=== PATIENT | female | born 1980 | race American Indian/Alaskan Native ===

== ENCOUNTER 2017-01-27 19:33 | Emergency (ER) | payer SELFPAY ==
[2017-01-27 20:45] VITALS: BP 143/89
--- NOTE | 2017-01-27 22:04 | Emergency Department Report ---
HPI - General Chief Complaint: Dental/Oral Time Seen by Provider: 01/27/17 22:04 - HPI HPI: Patient here reports that she has left upper gum pain and redness test radiating in her left ear times one month. She says she hadn't gone to the dentist for years because she cannot afford it. She says she took ibuprofen which did not help. Denies any fever or chills. Denies any sore throat, difficulty breathing or shortness of breath. Denies any drooling. She said the pain is not intermittent. ED Past Medical Hx - Past Medical History Previous Medical History?: Yes Hx Hypertension: No Hx Heart Attack/AMI: No Hx Congestive Heart Failure: No Hx Diabetes: No Hx Deep Vein Thrombosis: No Hx Pulmonary Embolism: No Hx GERD: Yes Hx Liver Disease: No Hx Renal Disease: No Hx Sickle Cell Disease: No Hx Arthritis: No Hx Headaches / Migraines: No Hx Seizures: No Hx Kidney Stones: No Hx Asthma: No Hx COPD: No Hx Tuberculosis: No Hx Dementia: No Hx HIV: No Additional medical history: anemia, herpes - Surgical History Past Surgical History?: Yes Hx Coronary Stent: No Hx Pacemaker: No Hx Internal Defibrillator: No Additional Surgical History: x 4. Hysterectomy 03/06/15 - Family History Family history: hypertension - Social History Smoking Status: Never Smoker Substance Use Type: None - Medications Home Medications: Home Medications Medication Instructions Recorded Confirmed Last Taken Type Ibuprofen [Motrin 800 MG tab] 800 mg PO Q8H PRN 03/01/15 03/01/15 Unknown History Multivitamin/Iron/Folic Acid 1 each PO DAILY #30 tablet 03/03/15 Unknown Rx [Multi-Day Plus Iron Tablet] medroxyPROGESTERone ACETATE 10 mg PO QDAY #7 tablet 03/03/15 Unknown Rx [Provera] Ferrous Sulfate [Feosol 325 MG tab] 325 mg PO BID #60 tablet 03/09/15 Unknown Rx Ibuprofen [Motrin] 800 mg PO Q8H PRN #30 tablet 03/09/15 Unknown Rx oxyCODONE /ACETAMINOPHEN [Percocet 2 tab PO Q4H PRN #30 tablet 03/09/15 Unknown Rx 5/325 mg] Ibuprofen [Motrin] 600 mg PO Q8H PRN #90 tablet 04/12/15 Unknown Rx Amoxicillin/K Clav Tab [Augmentin 1 tab PO BID #20 tablet 03/13/16 Unknown Rx 875MG TAB] HYDROcodone/APAP 5-325 [[place] 1 each PO Q6HR PRN #14 tablet 03/13/16 Unknown Rx 5-325 mg TAB] Acyclovir [Acyclovir Ointment] 1 applicatio TP 5XD PRN #1 tube 06/07/16 Unknown Rx Valacyclovir HCl [Valtrex] 1,000 mg PO BID #20 tab 06/07/16 Unknown Rx metroNIDAZOLE [Flagyl] 500 mg PO Q12HR #14 tab 06/07/16 Unknown Rx Acetaminophen/Codeine [Tylenol #3] 1 tab PO Q6H PRN #16 tab 01/27/17 Unknown Rx Amoxicillin [Amoxicillin TAB] 875 mg PO BID #20 tablet 01/27/17 Unknown Rx ED Review of Systems ROS: Stated complaint: ABSCESS/EAR ACHE/HEADACHE Other details as noted in HPI Comment: All other systems reviewed and negative Constitutional: denies: chills, fever Eyes: denies: eye discharge ENT: ear pain, dental pain. denies: throat pain, congestion Respiratory: no symptoms reported. denies: cough, orthopnea, shortness of breath, SOB with exertion, SOB at rest, stridor, wheezing Cardiovascular: denies: chest pain, palpitations, edema, syncope Gastrointestinal: denies: nausea, vomiting Musculoskeletal: denies: back pain, arthralgia Skin: denies: rash Neurological: denies: headache Physical Exam - Physical Exam Vital Signs: Vital Signs 01/27/17 20:15 Temperature 98.3 F Pulse Rate 86 Respiratory 16 Rate Blood Pressure 143/89 [Right] O2 Sat by Pulse 99 Oximetry General: This is a 36-year-old female well-nourished well-developed in no acute distress. Physical Exam: Head: Normocephalic atraumatic Mouth: Moist, no pharyngeal exudate or erythema. Uvula is midline and oral airway is patent. Positive gingival enlargement with erythema. Multiple dental caries. No facial swelling. No peritonsillar abscesses. Nose: Normal mucosa. Maxillary and frontal sinuses nontender to palpate Neck: Supple, no C-spine tenderness, no tracheal deviation. Nontender to palpate. no adenopathyBilateral otitis nontender to palpate Abdomen: Soft, nontender to palpate in all quadrants, normal bowel sounds in all quadrant and negative CVA tenderness bilaterally. Eyes: Bilateral pupils equal and reactive to light, bilateral EOM intact. Bilateral sclera and conjunctiva without injection. Normal accommodation. No Lungs: Clear to auscultate bilaterally no rhonchi wheezes or rales. Normal work of breathing extremity; No CCE. +2 pulses. No neurovascular compromise Cardiovascular: S1-S2, regular rate rhythm. No murmurs. Skin: clean Dry and intact no rash no lesions Psych: Normal mood and behavior ED Course Vital Signs 01/27/17 20:15 Temperature 98.3 F Pulse Rate 86 Respiratory 16 Rate Blood Pressure 143/89 [Right] O2 Sat by Pulse 99 Oximetry - Reevaluation(s) Reevaluation #1: 01/27/17 22:14 Patient given Rocephin 1 g IM and emergency room along with Motrin 800 mg by mouth. ED Medical Decision Making - Medical Decision Making ED course: She given Motrin 800 mg by mouth along with Rocephin 1 g IM emperic Treatment for gingivitis and poor oral care. Discussed with patient that she will need to follow-up with a dentist for deep seen in the deep cleaning of gums and managing multiple cavities. Discussed with her that if she does not follow up this could be due to more widespread infection in her mouth and in her neck. Discussed with her that her gum care is living to heart disease. I discussed with patient that she needs to at least twice a day after eating. Patient was understanding of discharge instruction discharged home with prescription for amoxicillin and Tylenol No. 3 Critical care attestation.: If time is entered above; I have spent that time in minutes in the direct care of this critically ill patient, excluding procedure time. ED Disposition Clinical Impression: Gingivitis, Pain in gums, Dental cavities Disposition: DISCHARGED TO HOME OR SELFCARE Is pt being admited?: No Does the pt Need Aspirin: No Condition: Stable Instructions: Gingivitis (ED), Dental Caries (ED) Additional Instructions: Please refer to dentist that you were referred to in Discharge instruction paperwork and call tomorrow to schedule please Floss in the morning and at bedtime Tylenol 3 can cause drowsiness. so please do not drive or operate heavy machinery while taking this medication Prescriptions: Acetaminophen/Codeine [Tylenol #3] 1 tab PO Q6H PRN #16 tab PRN Reason: Dental pain Amoxicillin [Amoxicillin TAB] 875 mg PO BID #20 tablet Referrals: [facility] [Outside] - 2-3 Days [facility] [Outside] - 2-3 Days Forms: Work/School Release Form(ED)
[2017-01-27] MEDS ORDERED: XYLOCAINE 1% MPF 5 mL INFILTRATI ONE (22:05)
[2017-01-27] MEDS ORDERED: ROCEPHIN IM STA (22:05)
[2017-01-27] MEDS ORDERED: MOTRIN PO ONE (22:06)
== END 2017-01-27 22:55 | disposition home or self-care (01) ==
LOC: ED 19:33
DX: K05.10 Chronic gingivitis, plaque induced (principal); K02.9 Dental caries, unspecified; K21.9 Gastro-esophageal reflux disease without esophagitis; Z90.710 Acquired absence of both cervix and uterus
CPT/HCPCS: 96372; 99282; J0696

== ENCOUNTER 2017-01-29 10:25 | Emergency (ER) | payer SELFPAY ==
[2017-01-29 10:33] VITALS: BP 134/91
--- NOTE | 2017-01-29 11:13 | Emergency Department Report ---
ED Headache HPI - General Chief Complaint: Headache Stated Complaint: HEADACHE Time Seen by Provider: 01/29/17 10:57 - History of Present Illness Allergies/Adverse Reactions: Allergies No Known Allergies Allergy (Verified 03/01/15 13:36) Home Medications: Ambulatory Orders Ibuprofen [Motrin 800 MG tab] 800 mg PO Q8H PRN 03/01/15 Multivitamin/Iron/Folic Acid [Multi-Day Plus Iron Tablet] 1 each PO DAILY #30 tablet 03/03/15 medroxyPROGESTERone ACETATE [Provera] 10 mg PO QDAY #7 tablet 03/03/15 Ferrous Sulfate [Feosol 325 MG tab] 325 mg PO BID #60 tablet 03/09/15 Ibuprofen [Motrin] 800 mg PO Q8H PRN #30 tablet 03/09/15 oxyCODONE /ACETAMINOPHEN [Percocet 5/325 mg] 2 tab PO Q4H PRN #30 tablet Ibuprofen [Motrin] 600 mg PO Q8H PRN #90 tablet 04/12/15 Amoxicillin/K Clav Tab [Augmentin 875MG TAB] 1 tab PO BID #20 tablet 03/13/16 HYDROcodone/APAP 5-325 [[place] 5-325 mg TAB] 1 each PO Q6HR PRN #14 tablet Acyclovir [Acyclovir Ointment] 1 applicatio TP 5XD PRN #1 tube 06/07/16 Valacyclovir HCl [Valtrex] 1,000 mg PO BID #20 tab 06/07/16 metroNIDAZOLE [Flagyl] 500 mg PO Q12HR #14 tab 06/07/16 Acetaminophen/Codeine [Tylenol #3] 1 tab PO Q6H PRN #16 tab 01/27/17 Amoxicillin [Amoxicillin TAB] 875 mg PO BID #20 tablet 01/27/17 ED Review of Systems ROS: Stated complaint: HEADACHE Other details as noted in HPI ED Past Medical Hx - Past Medical History Previous Medical History?: Yes Hx Hypertension: No Hx Heart Attack/AMI: No Hx Congestive Heart Failure: No Hx Diabetes: No Hx Deep Vein Thrombosis: No Hx Pulmonary Embolism: No Hx GERD: Yes Hx Liver Disease: No Hx Renal Disease: No Hx Sickle Cell Disease: No Hx Arthritis: No Hx Headaches / Migraines: No Hx Seizures: No Hx Kidney Stones: No Hx Asthma: No Hx COPD: No Hx Tuberculosis: No Hx Dementia: No Hx HIV: No Additional medical history: anemia, herpes - Surgical History Past Surgical History?: Yes Hx Coronary Stent: No Hx Pacemaker: No Hx Internal Defibrillator: No Additional Surgical History: x 4. Hysterectomy 03/06/15 - Social History Smoking Status: Never Smoker Substance Use Type: None - Medications Home Medications: Home Medications Medication Instructions Recorded Confirmed Last Taken Type Ibuprofen [Motrin 800 MG tab] 800 mg PO Q8H PRN 03/01/15 03/01/15 Unknown History Multivitamin/Iron/Folic Acid 1 each PO DAILY #30 tablet 03/03/15 Unknown Rx [Multi-Day Plus Iron Tablet] medroxyPROGESTERone ACETATE 10 mg PO QDAY #7 tablet 03/03/15 Unknown Rx [Provera] Ferrous Sulfate [Feosol 325 MG tab] 325 mg PO BID #60 tablet 03/09/15 Unknown Rx Ibuprofen [Motrin] 800 mg PO Q8H PRN #30 tablet 03/09/15 Unknown Rx oxyCODONE /ACETAMINOPHEN [Percocet 2 tab PO Q4H PRN #30 tablet 03/09/15 Unknown Rx 5/325 mg] Ibuprofen [Motrin] 600 mg PO Q8H PRN #90 tablet 04/12/15 Unknown Rx Amoxicillin/K Clav Tab [Augmentin 1 tab PO BID #20 tablet 03/13/16 Unknown Rx 875MG TAB] HYDROcodone/APAP 5-325 [[place] 1 each PO Q6HR PRN #14 tablet 03/13/16 Unknown Rx 5-325 mg TAB] Acyclovir [Acyclovir Ointment] 1 applicatio TP 5XD PRN #1 tube 06/07/16 Unknown Rx Valacyclovir HCl [Valtrex] 1,000 mg PO BID #20 tab 06/07/16 Unknown Rx metroNIDAZOLE [Flagyl] 500 mg PO Q12HR #14 tab 06/07/16 Unknown Rx Acetaminophen/Codeine [Tylenol #3] 1 tab PO Q6H PRN #16 tab 01/27/17 Unknown Rx Amoxicillin [Amoxicillin TAB] 875 mg PO BID #20 tablet 01/27/17 Unknown Rx ED Physical Exam - General Limitations: No Limitations ED Course Vital Signs 01/29/17 10:30 Temperature 99.3 F Pulse Rate 88 Respiratory 22 Rate Blood Pressure 134/91 O2 Sat by Pulse 99 Oximetry Critical care attestation.: If time is entered above; I have spent that time in minutes in the direct care of this critically ill patient, excluding procedure time. ED Disposition Condition: Stable
[2017-01-29] MEDS ORDERED: CLEOCIN IM ONE (11:25)
[2017-01-29] MEDS ORDERED: NORCO 5/325 PO ONE (11:25)
[2017-01-29] MEDS ORDERED: DELTASONE PO ONE (11:25)
--- NOTE | 2017-01-29 13:29 | Emergency Department Report ---
Entered by SUJATHA TAMAYO, acting as scribe for GABBY MEJIAS PA. ED Headache HPI - General Chief Complaint: Headache Stated Complaint: HEADACHE Time Seen by Provider: 01/29/17 10:57 Source: patient Exam Limitations: no limitations - History of Present Illness Initial Comments: 36 year old female with a PMHx of GERD presents to the ED c/o a headache and left side jaw pain that began two days ago. The pt presented to the ED c/o similar symptoms on 01/27/2017 but she states that she has not had any relief with T3 and amoxicillin. Denies any nausea, vomiting, chills and fever. Timing/Duration: constant, other (2 days) Quality: moderate Recent Head Trauma: no recent headache/trauma Modifying Factors: worse with: medication (no relief with T3 (Tylenol and Codeine)) Associated Symptoms: facial pain (left side jaw pain). denies: fever/chills, nausea/vomiting Allergies/Adverse Reactions: Allergies No Known Allergies Allergy (Verified 03/01/15 13:36) Home Medications: Ambulatory Orders Ibuprofen [Motrin 800 MG tab] 800 mg PO Q8H PRN 03/01/15 Multivitamin/Iron/Folic Acid [Multi-Day Plus Iron Tablet] 1 each PO DAILY #30 tablet 03/03/15 medroxyPROGESTERone ACETATE [Provera] 10 mg PO QDAY #7 tablet 03/03/15 Ferrous Sulfate [Feosol 325 MG tab] 325 mg PO BID #60 tablet 03/09/15 Ibuprofen [Motrin] 800 mg PO Q8H PRN #30 tablet 03/09/15 oxyCODONE /ACETAMINOPHEN [Percocet 5/325 mg] 2 tab PO Q4H PRN #30 tablet Ibuprofen [Motrin] 600 mg PO Q8H PRN #90 tablet 04/12/15 Amoxicillin/K Clav Tab [Augmentin 875MG TAB] 1 tab PO BID #20 tablet 03/13/16 HYDROcodone/APAP 5-325 [[place] 5-325 mg TAB] 1 each PO Q6HR PRN #14 tablet Acyclovir [Acyclovir Ointment] 1 applicatio TP 5XD PRN #1 tube 06/07/16 Valacyclovir HCl [Valtrex] 1,000 mg PO BID #20 tab 06/07/16 metroNIDAZOLE [Flagyl] 500 mg PO Q12HR #14 tab 06/07/16 Acetaminophen/Codeine [Tylenol #3] 1 tab PO Q6H PRN #16 tab 01/27/17 Amoxicillin [Amoxicillin TAB] 875 mg PO BID #20 tablet 01/27/17 traMADol [Ultram 50 MG tab] 50 mg PO Q4HR PRN #15 tablet 01/29/17 ED Review of Systems Comment: All other systems reviewed and negative Constitutional: denies: chills, fever Gastrointestinal: denies: nausea, vomiting Musculoskeletal: other (left side jaw pain) Neurological: headache ED Past Medical Hx - Past Medical History Previous Medical History?: Yes Hx Hypertension: No Hx Heart Attack/AMI: No Hx Congestive Heart Failure: No Hx Diabetes: No Hx Deep Vein Thrombosis: No Hx Pulmonary Embolism: No Hx GERD: Yes Hx Liver Disease: No Hx Renal Disease: No Hx Sickle Cell Disease: No Hx Arthritis: No Hx Headaches / Migraines: No Hx Seizures: No Hx Kidney Stones: No Hx Asthma: No Hx COPD: No Hx Tuberculosis: No Hx Dementia: No Hx HIV: No Additional medical history: anemia, herpes - Surgical History Past Surgical History?: Yes Hx Coronary Stent: No Hx Pacemaker: No Hx Internal Defibrillator: No Additional Surgical History: x 4. Hysterectomy 03/06/15 - Social History Smoking Status: Never Smoker Substance Use Type: None - Medications Home Medications: Home Medications Medication Instructions Recorded Confirmed Last Taken Type Ibuprofen [Motrin 800 MG tab] 800 mg PO Q8H PRN 03/01/15 03/01/15 Unknown History Multivitamin/Iron/Folic Acid 1 each PO DAILY #30 tablet 03/03/15 Unknown Rx [Multi-Day Plus Iron Tablet] medroxyPROGESTERone ACETATE 10 mg PO QDAY #7 tablet 03/03/15 Unknown Rx [Provera] Ferrous Sulfate [Feosol 325 MG tab] 325 mg PO BID #60 tablet 03/09/15 Unknown Rx Ibuprofen [Motrin] 800 mg PO Q8H PRN #30 tablet 03/09/15 Unknown Rx oxyCODONE /ACETAMINOPHEN [Percocet 2 tab PO Q4H PRN #30 tablet 03/09/15 Unknown Rx 5/325 mg] Ibuprofen [Motrin] 600 mg PO Q8H PRN #90 tablet 04/12/15 Unknown Rx Amoxicillin/K Clav Tab [Augmentin 1 tab PO BID #20 tablet 03/13/16 Unknown Rx 875MG TAB] HYDROcodone/APAP 5-325 [[place] 1 each PO Q6HR PRN #14 tablet 03/13/16 Unknown Rx 5-325 mg TAB] Acyclovir [Acyclovir Ointment] 1 applicatio TP 5XD PRN #1 tube 06/07/16 Unknown Rx Valacyclovir HCl [Valtrex] 1,000 mg PO BID #20 tab 06/07/16 Unknown Rx metroNIDAZOLE [Flagyl] 500 mg PO Q12HR #14 tab 06/07/16 Unknown Rx Acetaminophen/Codeine [Tylenol #3] 1 tab PO Q6H PRN #16 tab 01/27/17 Unknown Rx Amoxicillin [Amoxicillin TAB] 875 mg PO BID #20 tablet 01/27/17 Unknown Rx traMADol [Ultram 50 MG tab] 50 mg PO Q4HR PRN #15 tablet 01/29/17 Unknown Rx ED Physical Exam - General Limitations: No Limitations General appearance: alert, in no apparent distress - Head Head exam: Present: atraumatic, normocephalic - Eye Eye exam: Present: normal appearance, EOMI - ENT ENT exam: Present: normal exam, mucous membranes moist - Expanded ENT Exam Expanded Ear exam: Present: normal external inspection Mouth exam: Present: other (extensive dental decay and left side dental abscess) Teeth exam: Present: normal inspection Throat exam: Positive: normal inspection - Neck Neck exam: Present: normal inspection, full ROM. Absent: meningismus, lymphadenopathy, other (nuchal rigidity) - Respiratory Respiratory exam: Present: normal lung sounds bilaterally. Absent: respiratory distress - Extremities Exam Extremities exam: Present: normal inspection, full ROM - Back Exam Back exam: Present: normal inspection, full ROM - Neurological Exam Neurological exam: Present: alert, oriented X3 - Psychiatric Psychiatric exam: Present: normal affect, normal mood - Skin Skin exam: Present: warm, dry, intact ED Course Vital Signs 01/29/17 10:30 Temperature 99.3 F Pulse Rate 88 Respiratory 22 Rate Blood Pressure 134/91 O2 Sat by Pulse 99 Oximetry ED Disposition Clinical Impression: Dental cavities, Dental infection Disposition: DISCHARGED TO HOME OR SELFCARE Is pt being admited?: No Condition: Stable Instructions: Dental Caries (ED), Toothache (ED) Prescriptions: traMADol [Ultram 50 MG tab] 50 mg PO Q4HR PRN #15 tablet PRN Reason: Pain Referrals: PRIMARY CARE,MD [Primary Care Provider] - 3-5 Days Forms: Work/School Release Form(ED) This documentation as recorded by the BELKIS ashby JASMINE,accurately reflects the service I personally performed and the decisions made by me,GABBY MEJIAS PA.
== END 2017-01-29 11:52 | disposition home or self-care (01) ==
LOC: ED 10:25
DX: K02.9 Dental caries, unspecified (principal); K04.7 Periapical abscess without sinus; K21.9 Gastro-esophageal reflux disease without esophagitis; Z90.710 Acquired absence of both cervix and uterus
CPT/HCPCS: 96372; 99282; J7512

== ENCOUNTER 2017-03-07 18:36 | Emergency (ER) | payer SELFPAY ==
[2017-03-07] MEDS ORDERED: TORADOL IM ONE (21:53)
[2017-03-07] MEDS ORDERED: CLEOCIN IM ONE (21:53)
[2017-03-07] MEDS ORDERED: NORCO 5/325 PO ONE (21:53)
--- NOTE | 2017-03-07 22:44 | Emergency Department Report ---
ED ENT HPI - General Chief complaint: Earache Stated complaint: EARACHE, TOOTH ABSCESS Time Seen by Provider: 03/07/17 21:43 Source: patient, RN notes reviewed, old records reviewed Mode of arrival: Ambulatory Limitations: No Limitations - History of Present Illness Initial comments: PT c/o L earache x 2 weeks. PT thinks she has an ear infection because the pain is not relieved with otc analgesics. PT also c/o Left upper toothache x 1 week. PT states she was seen in ED for toothache/ gingivitis last month and was told to follow up with a Dentist. PT states that she made appointment but it is not until 03-17-17. MD complaint: tooth pain, ear pain Onset/Timin -: Gradual, week(s) Location: L ear, tooth # (14) Severity: severe Severity scale (0 -10): 10 Quality: sharp, constant Consistency: constant Improves with: none Context- Dental: history of dental caries, poor dental care Associated Symptoms: gum swelling, toothache. denies: fever, cough, sore throat - Related Data Home Medications Medication Instructions Recorded Confirmed Last Taken Ibuprofen [Motrin 800 MG tab] 800 mg PO Q8H PRN 03/01/15 03/01/15 Unknown Previous Rx's Medication Instructions Recorded Last Taken Type Ferrous Sulfate [Feosol 325 MG tab] 325 mg PO BID #60 tablet 03/09/15 Unknown Rx Acyclovir [Acyclovir Ointment] 1 applicatio TP 5XD PRN #1 tube 06/07/16 Unknown Rx Acetaminophen/Codeine [Tylenol #3] 1 tab PO Q6H PRN #12 tab 03/07/17 Unknown Rx Clindamycin [Clindamycin CAP] 300 mg PO Q8HR 10 Days 03/07/17 Unknown Rx Allergies Allergy/AdvReac Type Severity Reaction Status Date / Time No Known Allergies Allergy Verified 03/01/15 13:36 ED Dental HPI - General Chief complaint: Earache Stated complaint: EARACHE, TOOTH ABSCESS Time Seen by Provider: 03/07/17 21:43 Source: patient Mode of arrival: Ambulatory Limitations: No Limitations - Related Data Home Medications Medication Instructions Recorded Confirmed Last Taken Ibuprofen [Motrin 800 MG tab] 800 mg PO Q8H PRN 03/01/15 03/01/15 Unknown Previous Rx's Medication Instructions Recorded Last Taken Type Ferrous Sulfate [Feosol 325 MG tab] 325 mg PO BID #60 tablet 03/09/15 Unknown Rx Acyclovir [Acyclovir Ointment] 1 applicatio TP 5XD PRN #1 tube 06/07/16 Unknown Rx Acetaminophen/Codeine [Tylenol #3] 1 tab PO Q6H PRN #12 tab 03/07/17 Unknown Rx Clindamycin [Clindamycin CAP] 300 mg PO Q8HR 10 Days 03/07/17 Unknown Rx Allergies Allergy/AdvReac Type Severity Reaction Status Date / Time No Known Allergies Allergy Verified 03/01/15 13:36 ED Review of Systems ROS: Stated complaint: EARACHE, TOOTH ABSCESS Other details as noted in HPI Comment: All other systems reviewed and negative Constitutional: denies: chills, fever ENT: as per HPI, ear pain, dental pain. denies: throat pain Cardiovascular: denies: chest pain Gastrointestinal: denies: abdominal pain Genitourinary: denies: abnormal menses (no cycle due to hysterectomy ) Neurological: headache ED Past Medical Hx - Past Medical History Hx Hypertension: No Hx Heart Attack/AMI: No Hx Congestive Heart Failure: No Hx Diabetes: No Hx Deep Vein Thrombosis: No Hx Pulmonary Embolism: No Hx GERD: Yes Hx Liver Disease: No Hx Renal Disease: No Hx Sickle Cell Disease: No Hx Arthritis: No Hx Headaches / Migraines: No Hx Seizures: No Hx Kidney Stones: No Hx Asthma: No Hx COPD: No Hx Tuberculosis: No Hx Dementia: No Hx HIV: No Additional medical history: anemia, herpes - Surgical History Hx Coronary Stent: No Hx Pacemaker: No Hx Internal Defibrillator: No Additional Surgical History: x 4. Hysterectomy 03/06/15 - Social History Smoking Status: Never Smoker Substance Use Type: None - Medications Home Medications: Home Medications Medication Instructions Recorded Confirmed Last Taken Type Ibuprofen [Motrin 800 MG tab] 800 mg PO Q8H PRN 03/01/15 03/01/15 Unknown History Ferrous Sulfate [Feosol 325 MG tab] 325 mg PO BID #60 tablet 03/09/15 Unknown Rx Acyclovir [Acyclovir Ointment] 1 applicatio TP 5XD PRN #1 tube 06/07/16 Unknown Rx Acetaminophen/Codeine [Tylenol #3] 1 tab PO Q6H PRN #12 tab 03/07/17 Unknown Rx Clindamycin [Clindamycin CAP] 300 mg PO Q8HR 10 Days 03/07/17 Unknown Rx ED Physical Exam - General Limitations: No Limitations General appearance: alert, in no apparent distress - Head Head exam: Present: atraumatic, normocephalic, normal inspection - Eye Eye exam: Present: normal appearance, EOMI. Absent: conjunctival injection - ENT ENT exam: Present: normal orophraynx, TM's normal bilaterally, normal external ear exam - Expanded ENT Exam Expanded Mouth exam: Present: tongue normal. Absent: drooling, trismus Teeth exam: Present: dental caries, dental tenderness # (tooth #14 decayed to gum line, remaining expoused tooth ttp) - Neck Neck exam: Present: normal inspection, full ROM. Absent: lymphadenopathy - Respiratory Respiratory exam: Present: normal lung sounds bilaterally. Absent: respiratory distress, wheezes - Cardiovascular Cardiovascular Exam: Present: regular rate, normal rhythm, normal heart sounds - Extremities Exam Extremities exam: Present: normal inspection, full ROM - Back Exam Back exam: Present: normal inspection, full ROM - Neurological Exam Neurological exam: Present: alert, oriented X3, CN II-XII intact, normal gait - Psychiatric Psychiatric exam: Present: normal affect, normal mood - Skin Skin exam: Present: warm, dry, intact, normal color ED Course Vital Signs 03/07/17 19:08 Temperature 98.2 F Pulse Rate 76 Blood Pressure 129/88 O2 Sat by Pulse 18 L Oximetry pulse ox rechecked, 100% per Flori - Reevaluation(s) Reevaluation #1: 03/07/17 22:51 PT states mild improvement in pain. PT aware she will need to follow up with a Dentist and possibly an oral surgeon. PT verbalizes understanding. Critical Care Time: No Critical care attestation.: If time is entered above; I have spent that time in minutes in the direct care of this critically ill patient, excluding procedure time. ED Disposition Clinical Impression: Dental decay, Toothache, Otalgia, left ear Disposition: DISCHARGED TO HOME OR SELFCARE Is pt being admited?: No Does the pt Need Aspirin: No Condition: Stable Instructions: Dental Abscess (ED), Dental Caries (ED), Toothache (ED) Additional Instructions: No driving or ETOH after Tylenol #3 Prescriptions: Acetaminophen/Codeine [Tylenol #3] 1 tab PO Q6H PRN #12 tab PRN Reason: Pain , Severe (7-10) Clindamycin [Clindamycin CAP] 300 mg PO Q8HR 10 Days Referrals: PRIMARY CARE, [Primary Care Provider] - 3-5 Days Forms: Work/School Release Form(ED) Time of Disposition: 22:55
[2017-03-08 04:21] VITALS: BP 136/87
== END 2017-03-07 23:20 | disposition home or self-care (01) ==
LOC: ED 18:36
DX: K02.9 Dental caries, unspecified (principal); K08.89 Other specified disorders of teeth and supporting structures; H92.02 Otalgia, left ear; K21.9 Gastro-esophageal reflux disease without esophagitis; D64.9 Anemia, unspecified
CPT/HCPCS: 96372; 99282; J1885

== ENCOUNTER 2017-10-12 09:38 | Emergency (ER) | payer SELFPAY ==
[2017-10-12 09:53] VITALS: BP 128/81
[2017-10-12] MEDS ORDERED: TORADOL IM ONE (12:36)
--- NOTE | 2017-10-12 12:48 | Emergency Department Report ---
ED ENT HPI - General Chief complaint: Dental/Oral Stated complaint: TOOTH/GUM PAIN Time Seen by Provider: 10/12/17 11:39 Source: patient Mode of arrival: Ambulatory Limitations: No Limitations - History of Present Illness Initial comments: This is a 37-year-old female nontoxic, well nourished in appearance, no acute signs of distress presents to the ED with c/o of toothache x 1 week. Patient states she has a dentist appointment next week but due to the patient was not able to take it anymore. Patient denies any facial swelling. Denies any chest pain, short of breath, numbness, tingling, fever, chills, nausea, vomiting, headache or stiff neck. Patient denies any allergies. MD complaint: tooth pain -: Gradual Location: tooth # (1/2) 1 - pain Severity: mild Severity scale (0 -10): 8 Quality: aching Consistency: constant Improves with: none Worsens with: none Context- Dental: history of dental caries, poor dental care Associated Symptoms: gum swelling, toothache. denies: fever, cough, pain with swallowing, sore throat, tinnitus, hearing loss, discharge from ear, rhinorrhea - Related Data Home Medications Medication Instructions Recorded Confirmed Last Taken Ibuprofen [Motrin 800 MG tab] 800 mg PO Q8H PRN 03/01/15 03/01/15 Unknown Previous Rx's Medication Instructions Recorded Last Taken Type Ferrous Sulfate [Feosol 325 MG tab] 325 mg PO BID #60 tablet 03/09/15 Unknown Rx Acyclovir [Acyclovir Ointment] 1 applicatio TP 5XD PRN #1 tube 06/07/16 Unknown Rx Acetaminophen/Codeine [Tylenol #3] 1 tab PO Q6H PRN #12 tab 03/07/17 Unknown Rx Clindamycin [Clindamycin CAP] 300 mg PO Q8HR 10 Days capsule 03/07/17 Unknown Rx Amoxicillin/K Clav Tab [Augmentin 1 tab PO Q12HR #20 tab 10/12/17 Unknown Rx 875 mg] Ibuprofen [Motrin] 600 mg PO Q8H PRN #30 tablet 10/12/17 Unknown Rx Allergies Allergy/AdvReac Type Severity Reaction Status Date / Time No Known Allergies Allergy Verified 03/01/15 13:36 ED Dental HPI - General Chief complaint: Dental/Oral Stated complaint: TOOTH/GUM PAIN Time Seen by Provider: 10/12/17 11:39 Source: patient Mode of arrival: Ambulatory Limitations: No Limitations - Related Data Home Medications Medication Instructions Recorded Confirmed Last Taken Ibuprofen [Motrin 800 MG tab] 800 mg PO Q8H PRN 03/01/15 03/01/15 Unknown Previous Rx's Medication Instructions Recorded Last Taken Type Ferrous Sulfate [Feosol 325 MG tab] 325 mg PO BID #60 tablet 03/09/15 Unknown Rx Acyclovir [Acyclovir Ointment] 1 applicatio TP 5XD PRN #1 tube 06/07/16 Unknown Rx Acetaminophen/Codeine [Tylenol #3] 1 tab PO Q6H PRN #12 tab 03/07/17 Unknown Rx Clindamycin [Clindamycin CAP] 300 mg PO Q8HR 10 Days capsule 03/07/17 Unknown Rx Amoxicillin/K Clav Tab [Augmentin 1 tab PO Q12HR #20 tab 10/12/17 Unknown Rx 875 mg] Ibuprofen [Motrin] 600 mg PO Q8H PRN #30 tablet 10/12/17 Unknown Rx Allergies Allergy/AdvReac Type Severity Reaction Status Date / Time No Known Allergies Allergy Verified 03/01/15 13:36 ED Review of Systems ROS: Stated complaint: TOOTH/GUM PAIN Other details as noted in HPI Constitutional: denies: chills, fever Eyes: denies: eye pain, eye discharge, vision change ENT: dental pain. denies: ear pain, throat pain Respiratory: denies: cough, shortness of breath, wheezing Cardiovascular: denies: chest pain, palpitations Endocrine: no symptoms reported Gastrointestinal: denies: abdominal pain, nausea, diarrhea Genitourinary: denies: urgency, dysuria, discharge Musculoskeletal: denies: back pain, joint swelling, arthralgia Skin: denies: rash, lesions Neurological: denies: headache, weakness, paresthesias Psychiatric: denies: anxiety, depression Hematological/Lymphatic: denies: easy bleeding, easy bruising ED Past Medical Hx - Past Medical History Previous Medical History?: Yes Hx Hypertension: No Hx Heart Attack/AMI: No Hx Congestive Heart Failure: No Hx Diabetes: No Hx Deep Vein Thrombosis: No Hx Pulmonary Embolism: No Hx GERD: Yes Hx Liver Disease: No Hx Renal Disease: No Hx Sickle Cell Disease: No Hx Arthritis: No Hx Headaches / Migraines: No Hx Seizures: No Hx Kidney Stones: No Hx Asthma: No Hx COPD: No Hx Tuberculosis: No Hx Dementia: No Hx HIV: No Additional medical history: anemia, herpes - Surgical History Past Surgical History?: Yes Hx Coronary Stent: No Hx Pacemaker: No Hx Internal Defibrillator: No Additional Surgical History: x 4. Hysterectomy 03/06/15 - Social History Smoking Status: Never Smoker Substance Use Type: None - Medications Home Medications: Home Medications Medication Instructions Recorded Confirmed Last Taken Type Ibuprofen [Motrin 800 MG tab] 800 mg PO Q8H PRN 03/01/15 03/01/15 Unknown History Ferrous Sulfate [Feosol 325 MG tab] 325 mg PO BID #60 tablet 03/09/15 Unknown Rx Acyclovir [Acyclovir Ointment] 1 applicatio TP 5XD PRN #1 tube 06/07/16 Unknown Rx Acetaminophen/Codeine [Tylenol #3] 1 tab PO Q6H PRN #12 tab 03/07/17 Unknown Rx Clindamycin [Clindamycin CAP] 300 mg PO Q8HR 10 Days capsule 03/07/17 Unknown Rx Amoxicillin/K Clav Tab [Augmentin 1 tab PO Q12HR #20 tab 10/12/17 Unknown Rx 875 mg] Ibuprofen [Motrin] 600 mg PO Q8H PRN #30 tablet 10/12/17 Unknown Rx ED Physical Exam - General Limitations: No Limitations General appearance: alert, in no apparent distress - Head Head exam: Present: atraumatic, normocephalic - Eye Eye exam: Present: normal appearance, PERRL, EOMI Pupils: Present: normal accommodation - ENT ENT exam: Present: mucous membranes moist, TM's normal bilaterally, normal external ear exam - Expanded ENT Exam Expanded Ear exam: Present: normal external inspection Mouth exam: Present: normal external inspection, tongue normal. Absent: drooling, trismus, muffled voice, tongue elevation, laceration Teeth exam: Present: dental caries, fractured tooth # (1/2), dental tenderness # (1/2), gingival enlargement, other (No abscess or swelling) Throat exam: Positive: normal inspection. Negative: tonsillar erythema, tonsillomegaly, tonsillar exudate, R peritonsillar mass, L peritonsillar mass - Neck Neck exam: Present: normal inspection, full ROM. Absent: tenderness, meningismus, lymphadenopathy, thyromegaly - Respiratory Respiratory exam: Present: normal lung sounds bilaterally. Absent: respiratory distress - Cardiovascular Cardiovascular Exam: Present: regular rate, normal rhythm. Absent: systolic murmur, diastolic murmur, rubs, gallop - GI/Abdominal GI/Abdominal exam: Present: soft, normal bowel sounds - Extremities Exam Extremities exam: Present: normal inspection - Back Exam Back exam: Present: normal inspection - Neurological Exam Neurological exam: Present: alert, oriented X3 - Psychiatric Psychiatric exam: Present: normal affect, normal mood - Skin Skin exam: Present: warm, dry, intact, normal color. Absent: rash ED Course Vital Signs 10/12/17 10/12/17 09:52 12:41 Temperature 98.6 F Pulse Rate 96 H Respiratory 20 16 Rate Blood Pressure 128/81 O2 Sat by Pulse 96 Oximetry - Reevaluation(s) Reevaluation #1: 10/12/17 12:45 Patient is speaking in full sentences with no signs of distress noted. ED Medical Decision Making - Medical Decision Making This is a 37-year-old female that presents with multiple dental caries and gingivitis. Patient is stable and was examined by me. Patient received Toradol and ED. Patient was instructed to follow up with a dentist in 24 hours or if symptoms such as facial swelling or any worsening of symptoms to return to emergency room as soon as possible. Patient discharged with augmentin and Motrin. At time time of discharge, the patient does not seem toxic or ill in appearance. No acute signs of distress noted. Patient agrees to discharge treatment plan of care. No further questions noted by the patient. Critical care attestation.: If time is entered above; I have spent that time in minutes in the direct care of this critically ill patient, excluding procedure time. ED Disposition Clinical Impression: Dental caries, Gingivitis Disposition: TO HOME OR SELFCARE Is pt being admited?: No Does the pt Need Aspirin: No Condition: Stable Instructions: Dental Caries (ED), Gingivitis (ED), Amoxicillin/Clavulanate Potassium (By mouth), Ibuprofen (By mouth) Additional Instructions: Follow-up with a dentist in 3-5 days or if symptoms worsen and continue return to emergency room as soon as possible. Prescriptions: Amoxicillin/K Clav Tab [Augmentin 875 mg] 1 tab PO Q12HR #20 tab Ibuprofen [Motrin] 600 mg PO Q8H PRN #30 tablet PRN Reason: Pain Referrals: PRIMARY CARE, [Primary Care Provider] - 3-5 Days ANT WHITING MD [Staff Physician] - 3-5 Days [facility] [Outside] - 3-5 Days Forms: Work/School Release Form(ED)
== END 2017-10-12 12:59 | disposition home or self-care (01) ==
LOC: ED 09:38
DX: K02.9 Dental caries, unspecified (principal); K05.10 Chronic gingivitis, plaque induced; K21.9 Gastro-esophageal reflux disease without esophagitis; Z90.710 Acquired absence of both cervix and uterus
CPT/HCPCS: 96372; 99282; J1885

== ENCOUNTER 2017-10-24 04:09 | Emergency (ER) | payer OTHER ==
[2017-10-24 04:16] VITALS: BP 127/76
[2017-10-24 04:52] LABS: Basophils % (Auto) 0.4 % (0.0-1.8); Eosinophils # (Auto) 0.1 K/mm3 (0.0-0.4); Eosinophils % (Auto) 0.9 % (0.0-4.3); Hematocrit 35.8 % (30.3-42.9); Hemoglobin 11.9 gm/dl (10.1-14.3); Lymphocytes # (Auto) 1.2 K/mm3 (1.2-5.4); Lymphocytes % (Auto) 14.5 % (13.4-35.0); Mean Corpuscular HGB Conc 33 % (30-34); Mean Corpuscular Hemoglobin 27 pg (28-32); Mean Corpuscular Volume 79 fl (79-97); Monocytes # (Auto) 0.4 K/mm3 (0.0-0.8); Monocytes % (Auto) 5.3 % (0.0-7.3); Platelet Count 185 K/mm3 (140-440); Red Blood Count 4.51 M/mm3 (3.65-5.03); Red Cell Distribution Width 13.5 % (13.2-15.2)
[2017-10-24 05:14] LABS: Alanine Aminotransferase 17 units/L (7-56); Albumin 3.6 g/dL (3.9-5); BUN/Creatinine Ratio 15; Blood Urea Nitrogen 9 mg/dL (7-17); Calcium 8.6 mg/dL (8.4-10.2); Hemolysis Index 11
[2017-10-24 05:45] LABS: Bilirubin,Urine NEG (Negative); Blood,Urine NEG (Negative); Color,Urine Straw (Yellow); Nitrite,Urine NEG (Negative); Protein,Urine <15 mg/dL mg/dL (Negative); Urobilinogen,Urine < 2.0 mg/dL (<2.0)
== END 2017-10-24 11:30 | disposition left against medical advice (07) ==
LOC: ED 04:09
DX: K92.1 Melena (principal); Z53.21 Procedure and treatment not carried out due to patient leaving prior to being seen by health care provider
CPT/HCPCS: 36415; 80053; 81001; 85025

== ENCOUNTER 2018-06-21 08:40 | Emergency (ER) | payer BC ==
[2018-06-21 08:58] VITALS: BP 140/91
--- NOTE | 2018-06-21 10:30 | Emergency Department Report ---
ED General Adult HPI - General Chief complaint: Dizziness Stated complaint: RT EYE IRRITATION Time Seen by Provider: 06/21/18 09:45 Source: patient Mode of arrival: Ambulatory Limitations: No Limitations - History of Present Illness Initial comments: Patient presents to the emergency department with the complaint of right eye blurred vision and right eyelid droopiness. Patient states that at times her right leg is heavy and it feels like it's drooping but then it resolves. Patient states she has not had her vision checked in many years. Patient also states that she was not aware that she continue taking blood pressure medications after they was prescribed to her over a year and half ago. She states she started back taking her BP meds last month. Patient does endorse to having intermittent right-sided headaches frequently. Patient denies any chest pain, abdominal pain, dizziness -: Gradual Severity scale (0 -10): 0 Consistency: intermittent Improves with: none Worsens with: none Associated Symptoms: denies other symptoms Treatments Prior to Arrival: none - Related Data Home Medications Medication Instructions Recorded Confirmed Last Taken Ibuprofen [Motrin 800 MG tab] 800 mg PO Q8H PRN 03/01/15 03/01/15 Unknown Previous Rx's Medication Instructions Recorded Last Taken Type Ferrous Sulfate [Feosol 325 MG tab] 325 mg PO BID #60 tablet 03/09/15 Unknown Rx Acyclovir [Acyclovir Ointment] 1 applicatio TP 5XD PRN #1 tube 06/07/16 Unknown Rx Acetaminophen/Codeine [Tylenol #3] 1 tab PO Q6H PRN #12 tab 03/07/17 Unknown Rx Clindamycin [Clindamycin CAP] 300 mg PO Q8HR 10 Days capsule 03/07/17 Unknown Rx Amoxicillin/K Clav Tab [Augmentin 1 tab PO Q12HR #20 tab 10/12/17 Unknown Rx 875 mg] Ibuprofen [Motrin] 600 mg PO Q8H PRN #30 tablet 10/12/17 Unknown Rx Allergies Allergy/AdvReac Type Severity Reaction Status Date / Time No Known Allergies Allergy Verified 03/01/15 13:36 ED Review of Systems ROS: Stated complaint: RT EYE IRRITATION Other details as noted in HPI Constitutional: denies: chills, fever Eyes: vision change (patient complains of blurred vision). denies: eye pain, eye discharge ENT: denies: ear pain, throat pain Respiratory: denies: cough, shortness of breath, wheezing Cardiovascular: denies: chest pain, palpitations Endocrine: no symptoms reported Gastrointestinal: denies: abdominal pain, nausea, diarrhea Genitourinary: denies: urgency, dysuria, discharge Musculoskeletal: denies: back pain, joint swelling, arthralgia Skin: denies: rash, lesions Neurological: denies: headache, weakness, paresthesias Psychiatric: denies: anxiety, depression Hematological/Lymphatic: denies: easy bleeding, easy bruising ED Past Medical Hx - Past Medical History Previous Medical History?: Yes Hx Hypertension: Yes Hx Heart Attack/AMI: No Hx Congestive Heart Failure: No Hx Diabetes: No Hx Deep Vein Thrombosis: No Hx Pulmonary Embolism: No Hx GERD: Yes Hx Liver Disease: No Hx Renal Disease: No Hx Sickle Cell Disease: No Hx Arthritis: No Hx Headaches / Migraines: No Hx Seizures: No Hx Kidney Stones: No Hx Asthma: No Hx COPD: No Hx Tuberculosis: No Hx Dementia: No Hx HIV: No Additional medical history: anemia, herpes - Surgical History Past Surgical History?: Yes Hx Coronary Stent: No Hx Pacemaker: No Hx Internal Defibrillator: No Additional Surgical History: x 4. Hysterectomy 03/06/15 - Social History Smoking Status: Never Smoker Substance Use Type: None - Medications Home Medications: Home Medications Medication Instructions Recorded Confirmed Last Taken Type Ibuprofen [Motrin 800 MG tab] 800 mg PO Q8H PRN 03/01/15 03/01/15 Unknown History Ferrous Sulfate [Feosol 325 MG tab] 325 mg PO BID #60 tablet 03/09/15 Unknown Rx Acyclovir [Acyclovir Ointment] 1 applicatio TP 5XD PRN #1 tube 06/07/16 Unknown Rx Acetaminophen/Codeine [Tylenol #3] 1 tab PO Q6H PRN #12 tab 03/07/17 Unknown Rx Clindamycin [Clindamycin CAP] 300 mg PO Q8HR 10 Days capsule 03/07/17 Unknown Rx Amoxicillin/K Clav Tab [Augmentin 1 tab PO Q12HR #20 tab 10/12/17 Unknown Rx 875 mg] Ibuprofen [Motrin] 600 mg PO Q8H PRN #30 tablet 10/12/17 Unknown Rx ED Physical Exam - General Limitations: No Limitations General appearance: alert, in no apparent distress - Head Head exam: Present: atraumatic, normocephalic - Eye Eye exam: Present: normal appearance, PERRL, EOMI. Absent: scleral icterus, conjunctival injection, nystagmus, periorbital swelling, periorbital tenderness Pupils: Present: normal accommodation, other (visual pyle are intact) - ENT ENT exam: Present: mucous membranes moist - Neck Neck exam: Present: normal inspection - Respiratory Respiratory exam: Present: normal lung sounds bilaterally, rhonchi, stridor. Absent: respiratory distress, wheezes, rales - Cardiovascular Cardiovascular Exam: Present: regular rate, normal rhythm. Absent: systolic murmur, diastolic murmur, rubs, gallop - GI/Abdominal GI/Abdominal exam: Present: soft, normal bowel sounds. Absent: distended, tenderness - Extremities Exam Extremities exam: Present: normal inspection - Back Exam Back exam: Present: normal inspection - Neurological Exam Neurological exam: Present: alert, oriented X3, CN II-XII intact. Absent: motor sensory deficit - Psychiatric Psychiatric exam: Present: normal affect, normal mood - Skin Skin exam: Present: warm, dry, intact, normal color. Absent: rash ED Course Vital Signs 06/21/18 08:55 Temperature 98.3 F Pulse Rate 78 Respiratory 16 Rate Blood Pressure 140/91 O2 Sat by Pulse 99 Oximetry ED Medical Decision Making - Medical Decision Making Discussed with mom the need to follow-up with her primary care physician for these concerns and for further testing. Patient denies any family history of autoimmune diseases including lambert- Eaton or Myasthenia Gravis Critical care attestation.: If time is entered above; I have spent that time in minutes in the direct care of this critically ill patient, excluding procedure time. ED Disposition Clinical Impression: Blurred vision Disposition: DC-01 TO HOME OR SELFCARE Is pt being admited?: No Does the pt Need Aspirin: No Condition: Stable Instructions: Blurred Vision (ED) Additional Instructions: Return IF WORSE Referrals: PRIMARY CARE,MD [Primary Care Provider] - 3-5 Days [facility] [Outside] - 3-5 Days Forms: Work/School Release Form(ED) Time of Disposition: 10:31
== END 2018-06-21 10:51 | disposition home or self-care (01) ==
LOC: ED 08:40
DX: H53.8 Other visual disturbances (principal); I10 Essential (primary) hypertension; K21.9 Gastro-esophageal reflux disease without esophagitis; Z90.710 Acquired absence of both cervix and uterus
CPT/HCPCS: 99282

== ENCOUNTER 2018-12-15 07:27 | Emergency (ER) | payer BC ==
[2018-12-15] MEDS ORDERED: ASPIRIN PO ONE (07:32)
[2018-12-15 07:56] LABS: Basophils % (Auto) 0.7 % (0.0-1.8); Eosinophils # (Auto) 0.1 K/mm3 (0.0-0.4); Eosinophils % (Auto) 1.4 % (0.0-4.3); Hematocrit 40.9 % (30.3-42.9); Hemoglobin 13.3 gm/dl (10.1-14.3); Lymphocytes # (Auto) 1.5 K/mm3 (1.2-5.4); Mean Corpuscular HGB Conc 32 % (30-34); Mean Corpuscular Volume 81 fl (79-97); Monocytes # (Auto) 0.3 K/mm3 (0.0-0.8); Monocytes % (Auto) 5.8 % (0.0-7.3); Platelet Count 221 K/mm3 (140-440); Red Blood Count 5.05 M/mm3 (3.65-5.03); Red Cell Distribution Width 12.9 % (13.2-15.2)
[2018-12-15 08:17] LABS: BUN/Creatinine Ratio 16; Blood Urea Nitrogen 11 mg/dL (7-17); Calcium 9.1 mg/dL (8.4-10.2); Hemolysis Index 5
--- NOTE | 2018-12-15 09:21 | XRay Report ---
CHEST 2 VIEWS INDICATION: Chest pain. COMPARISON: None similar. FINDINGS: PA and lateral chest radiographs suggest top normal heart size. Grossly normal mediastinal and hilar contours. Clear lungs except for subtle left lateral costophrenic angle blunting, possibly pleural fluid or thickening. No CHF. Intact bones. CONCLUSION: Subtle left basilar pleural thickening or fluid, as described. Please correlate. Thank you for the opportunity to participate in this patient's care.
--- NOTE | 2018-12-15 11:36 | Emergency Department Report ---
ED General Adult HPI - General Chief complaint: Chest Pain Stated complaint: SOB/(L) ARM PAIN/CHEST PAIN Time Seen by Provider: 12/15/18 08:28 Source: patient Mode of arrival: Ambulatory Limitations: No Limitations - History of Present Illness Initial comments: Patient is a 38-year-old female who is presenting with 2 months of shortness of breath. Patient states that she takes a deep breath she feels some discomfort in the chest. She denies any cough. She occasionally also feels left chest heaviness for the last 3 days. Patient states her exercise tolerance is decreased. Patient approximately a month ago and was told she may have some mild fluid in the lungs and was placed on Lasix which did help her orthopnea but the rest of her symptoms have persisted. Patient had echocardiogram was told that everything looked fine. Patient also was told by her primary care physician that she had GERD been on omeprazole for the past 2 months. Patient states is been no improvement with symptoms. As far as the chest heaviness patient also states his radiation to the left shoulder. She denies nausea vomiting fevers chills cough cold or congestion at this time. - Related Data Home Medications Medication Instructions Recorded Confirmed Last Taken Ibuprofen [Motrin 800 MG tab] 800 mg PO Q8H PRN 03/01/15 03/01/15 Unknown Previous Rx's Medication Instructions Recorded Last Taken Type Ferrous Sulfate [Feosol 325 MG tab] 325 mg PO BID #60 tablet 03/09/15 Unknown Rx Acyclovir [Acyclovir Ointment] 1 applicatio TP 5XD PRN #1 tube 06/07/16 Unknown Rx Acetaminophen/Codeine [Tylenol #3] 1 tab PO Q6H PRN #12 tab 03/07/17 Unknown Rx Clindamycin [Clindamycin CAP] 300 mg PO Q8HR 10 Days capsule 03/07/17 Unknown Rx Amoxicillin/K Clav Tab [Augmentin 1 tab PO Q12HR #20 tab 10/12/17 Unknown Rx 875 mg] Ibuprofen [Motrin] 600 mg PO Q8H PRN #30 tablet 10/12/17 Unknown Rx Naproxen [Naprosyn] 500 mg PO BID PRN #12 tablet 09/17/18 Unknown Rx cephALEXin [Keflex] 500 mg PO Q8HR 7 Days #14 cap 09/17/18 Unknown Rx ALBUTEROL Inhaler (OR & NICU) 2 puff IH QID PRN #1 inhalation 12/15/18 Unknown Rx [ProAir HFA Inhaler] Sucralfate [Carafate] 1 gm PO QID 15 Days oral.susp 12/15/18 Unknown Rx Allergies Allergy/AdvReac Type Severity Reaction Status Date / Time No Known Allergies Allergy Verified 03/01/15 13:36 ED Review of Systems ROS: Stated complaint: SOB/(L) ARM PAIN/CHEST PAIN Other details as noted in HPI Comment: All other systems reviewed and negative ED Past Medical Hx - Past Medical History Hx Hypertension: Yes Hx Heart Attack/AMI: No Hx Congestive Heart Failure: No Hx Diabetes: No Hx Deep Vein Thrombosis: No Hx Pulmonary Embolism: No Hx GERD: Yes Hx Liver Disease: No Hx Renal Disease: No Hx Sickle Cell Disease: No Hx Arthritis: No Hx Headaches / Migraines: No Hx Seizures: No Hx Kidney Stones: No Hx Asthma: No Hx COPD: No Hx Tuberculosis: No Hx Dementia: No Hx HIV: No Additional medical history: anemia, herpes - Surgical History Hx Coronary Stent: No Hx Pacemaker: No Hx Internal Defibrillator: No Additional Surgical History: x 4. Hysterectomy 03/06/15 - Social History Smoking Status: Never Smoker Substance Use Type: None - Medications Home Medications: Home Medications Medication Instructions Recorded Confirmed Last Taken Type Ibuprofen [Motrin 800 MG tab] 800 mg PO Q8H PRN 03/01/15 03/01/15 Unknown History Ferrous Sulfate [Feosol 325 MG tab] 325 mg PO BID #60 tablet 03/09/15 Unknown Rx Acyclovir [Acyclovir Ointment] 1 applicatio TP 5XD PRN #1 tube 06/07/16 Unknown Rx Acetaminophen/Codeine [Tylenol #3] 1 tab PO Q6H PRN #12 tab 03/07/17 Unknown Rx Clindamycin [Clindamycin CAP] 300 mg PO Q8HR 10 Days capsule 03/07/17 Unknown Rx Amoxicillin/K Clav Tab [Augmentin 1 tab PO Q12HR #20 tab 10/12/17 Unknown Rx 875 mg] Ibuprofen [Motrin] 600 mg PO Q8H PRN #30 tablet 10/12/17 Unknown Rx Naproxen [Naprosyn] 500 mg PO BID PRN #12 tablet 09/17/18 Unknown Rx cephALEXin [Keflex] 500 mg PO Q8HR 7 Days #14 cap 09/17/18 Unknown Rx ALBUTEROL Inhaler (OR & NICU) 2 puff IH QID PRN #1 inhalation 12/15/18 Unknown Rx [ProAir HFA Inhaler] Sucralfate [Carafate] 1 gm PO QID 15 Days oral.susp 12/15/18 Unknown Rx ED Physical Exam - General Limitations: No Limitations General appearance: alert, in no apparent distress - Head Head exam: Present: atraumatic, normocephalic - Eye Eye exam: Present: normal appearance - ENT ENT exam: Present: mucous membranes moist - Neck Neck exam: Present: normal inspection - Respiratory Respiratory exam: Present: normal lung sounds bilaterally. Absent: respiratory distress, wheezes, rales, rhonchi - Cardiovascular Cardiovascular Exam: Present: regular rate, normal rhythm. Absent: systolic murmur, diastolic murmur, rubs, gallop - GI/Abdominal GI/Abdominal exam: Present: soft, normal bowel sounds. Absent: distended, tenderness, guarding, rebound - Extremities Exam Extremities exam: Present: normal inspection - Back Exam Back exam: Present: normal inspection - Neurological Exam Neurological exam: Present: alert, oriented X3 - Psychiatric Psychiatric exam: Present: normal affect, normal mood - Skin Skin exam: Present: warm, dry, intact, normal color. Absent: rash ED Course Vital Signs 12/15/18 07:44 Temperature 98.3 F Pulse Rate 71 Respiratory 16 Rate Blood Pressure 149/96 [Right] O2 Sat by Pulse 99 Oximetry ED Medical Decision Making - Lab Data Result diagrams: 12/15/18 07:44 12/15/18 07:37 Lab Results 12/15/18 12/15/18 12/15/18 Range/Units 07:37 07:44 08:36 WBC 5.0 (4.5-11.0) K/mm3 RBC 5.05 H (3.65-5.03) M/mm3 Hgb 13.3 (10.1-14.3) gm/dl Hct 40.9 (30.3-42.9) % MCV 81 (79-97) fl MCH 26 L (28-32) pg MCHC 32 (30-34) % RDW 12.9 L (13.2-15.2) % Plt Count 221 (140-440) K/mm3 Lymph % (Auto) 30.0 (13.4-35.0) % [place] % (Auto) 5.8 (0.0-7.3) % Eos % (Auto) 1.4 (0.0-4.3) % Baso % (Auto) 0.7 (0.0-1.8) % Lymph # 1.5 (1.2-5.4) K/mm3 [place] # 0.3 (0.0-0.8) K/mm3 Eos # 0.1 (0.0-0.4) K/mm3 Baso # 0.0 (0.0-0.1) K/mm3 Seg Neutrophils % 62.1 (40.0-70.0) % Seg Neutrophils # 3.1 (1.8-7.7) K/mm3 D-Dimer < 135.00 (0-234) ng/mlDDU Sodium 140 (137-145) mmol/L Potassium 4.1 (3.6-5.0) mmol/L Chloride 104.6 (98-107) mmol/L Carbon Dioxide 22 (22-30) mmol/L Anion Gap 18 mmol/L BUN 11 (7-17) mg/dL Creatinine 0.7 (0.7-1.2) mg/dL Estimated GFR > 60 ml/min BUN/Creatinine Ratio 16 % Glucose 93 (65-100) mg/dL Calcium 9.1 (8.4-10.2) mg/dL Troponin T < 0.010 (0.00-0.029) ng/mL 12/15/18 Range/Units 10:30 WBC (4.5-11.0) K/mm3 RBC (3.65-5.03) M/mm3 Hgb (10.1-14.3) gm/dl Hct (30.3-42.9) % MCV (79-97) fl MCH (28-32) pg MCHC (30-34) % RDW (13.2-15.2) % Plt Count (140-440) K/mm3 Lymph % (Auto) (13.4-35.0) % [place] % (Auto) (0.0-7.3) % Eos % (Auto) (0.0-4.3) % Baso % (Auto) (0.0-1.8) % Lymph # (1.2-5.4) K/mm3 [place] # (0.0-0.8) K/mm3 Eos # (0.0-0.4) K/mm3 Baso # (0.0-0.1) K/mm3 Seg Neutrophils % (40.0-70.0) % Seg Neutrophils # (1.8-7.7) K/mm3 D-Dimer (0-234) ng/mlDDU Sodium (137-145) mmol/L Potassium (3.6-5.0) mmol/L Chloride (98-107) mmol/L Carbon Dioxide (22-30) mmol/L Anion Gap mmol/L BUN (7-17) mg/dL Creatinine (0.7-1.2) mg/dL Estimated GFR ml/min BUN/Creatinine Ratio % Glucose (65-100) mg/dL Calcium (8.4-10.2) mg/dL Troponin T < 0.010 (0.00-0.029) ng/mL - EKG Data -: EKG Interpreted by Me - EKG Data 12/15/18 11:35 EKG shows sinus rhythm a rate of 74 normal axis normal intervals. There are no ST segment elevations or depressions. Interpretation is 735 - Radiology Data CXR WNL - Medical Decision Making Recently negative stress tests. Patien may need to follow back up with cardiology for stress testing. Patient also has a possible diagnosis of GERD and omeprazole is not helping. Patient started on Carafate. Patient also to be given follow-up with the pulmonology as well. Patient be discharged home in stable condition. Critical care attestation.: If time is entered above; I have spent that time in minutes in the direct care of this critically ill patient, excluding procedure time. ED Disposition Clinical Impression: Atypical chest pain Disposition: DC-01 TO HOME OR SELFCARE Is pt being admited?: No Does the pt Need Aspirin: No Condition: Stable Instructions: Chest Pain (ED) Additional Instructions: Even may need to see the phlebotomy instructor also for possible stress test Referrals: KIANA ATKINSON MD [Staff Physician] - 3-5 Days (Pulmonology ) DEXTER SUAREZ MD [Staff Physician] - 3-5 Days (gastroenterology ) Time of Disposition: 11:38
[2018-12-15 11:47] VITALS: BP 116/77
== END 2018-12-15 11:47 | disposition home or self-care (01) ==
LOC: ED 07:27
DX: R07.89 Other chest pain (principal); I10 Essential (primary) hypertension; K21.9 Gastro-esophageal reflux disease without esophagitis
CPT/HCPCS: 36415; 71046; 80048; 84484; 85025; 85379; 93005; 93010

== ENCOUNTER 2019-03-21 17:25 | Emergency (ER) | payer BC ==
--- NOTE | 2019-03-21 19:43 | Emergency Department Report ---
ED General Adult HPI - General Chief complaint: Dyspnea/Respdistress Stated complaint: MIDDLE CHEST PAIN/BACK PAIN Time Seen by Provider: 03/21/19 19:22 Source: patient Mode of arrival: Ambulatory Limitations: No Limitations - History of Present Illness Initial comments: Pt is a 38 yo female who presents to the ED with c/o feeling like she has to take a "deep breaths" for the last month. she denies any SOB. She states she has chest heaviness. she denies any cough, congestion, radiation of the pain, or LE edema. pt states she saw her PCP for this and was diagnosed with anxiety/depression and started on hydroxyzine and zoloft. she has also been seen in the ED for this complaint. she also saw pulmonology and states she was given an albuterol inhaler. PSHx: hysterectomy 2004 - Related Data Home Medications Medication Instructions Recorded Confirmed Last Taken Ibuprofen [Motrin 800 MG tab] 800 mg PO Q8H PRN 03/01/15 03/01/15 Unknown Previous Rx's Medication Instructions Recorded Last Taken Type Ferrous Sulfate [Feosol 325 MG tab] 325 mg PO BID #60 tablet 03/09/15 Unknown Rx Acyclovir [Acyclovir Ointment] 1 applicatio TP 5XD PRN #1 tube 06/07/16 Unknown Rx Acetaminophen/Codeine [Tylenol #3] 1 tab PO Q6H PRN #12 tab 03/07/17 Unknown Rx Clindamycin [Clindamycin CAP] 300 mg PO Q8HR 10 Days capsule 03/07/17 Unknown Rx Amoxicillin/K Clav Tab [Augmentin 1 tab PO Q12HR #20 tab 10/12/17 Unknown Rx 875 mg] Ibuprofen [Motrin] 600 mg PO Q8H PRN #30 tablet 10/12/17 Unknown Rx Naproxen [Naprosyn] 500 mg PO BID PRN #12 tablet 09/17/18 Unknown Rx cephALEXin [Keflex] 500 mg PO Q8HR 7 Days #14 cap 09/17/18 Unknown Rx ALBUTEROL Inhaler (OR & NICU) 2 puff IH QID PRN #1 inhalation 12/15/18 Unknown Rx [ProAir HFA Inhaler] Sucralfate [Carafate] 1 gm PO QID 15 Days oral.susp 12/15/18 Unknown Rx ALPRAZolam [Xanax TAB] 0.25 mg PO BID PRN #6 tab 01/14/19 Unknown Rx Butalb/Acetamin/Caff 50-325-40 1 tab PO Q6HR PRN #12 tab 01/14/19 Unknown Rx [Fioricet] Allergies Allergy/AdvReac Type Severity Reaction Status Date / Time No Known Allergies Allergy Verified 03/21/19 17:26 ED Review of Systems ROS: Stated complaint: MIDDLE CHEST PAIN/BACK PAIN Other details as noted in HPI Comment: All other systems reviewed and negative ED Past Medical Hx - Past Medical History Hx Hypertension: Yes Hx Heart Attack/AMI: No Hx Congestive Heart Failure: No Hx Diabetes: No Hx Deep Vein Thrombosis: No Hx Pulmonary Embolism: No Hx GERD: Yes Hx Liver Disease: No Hx Renal Disease: No Hx Sickle Cell Disease: No Hx Arthritis: No Hx Headaches / Migraines: No Hx Seizures: No Hx Kidney Stones: No Hx Asthma: Yes Hx COPD: No Hx Tuberculosis: No Hx Dementia: No Hx HIV: No Additional medical history: anemia, herpes - Surgical History Hx Coronary Stent: No Hx Pacemaker: No Hx Internal Defibrillator: No Additional Surgical History: x 4. Hysterectomy 03/06/15 - Social History Smoking Status: Never Smoker Substance Use Type: None - Medications Home Medications: Home Medications Medication Instructions Recorded Confirmed Last Taken Type Ibuprofen [Motrin 800 MG tab] 800 mg PO Q8H PRN 03/01/15 03/01/15 Unknown History Ferrous Sulfate [Feosol 325 MG tab] 325 mg PO BID #60 tablet 03/09/15 Unknown Rx Acyclovir [Acyclovir Ointment] 1 applicatio TP 5XD PRN #1 tube 06/07/16 Unknown Rx Acetaminophen/Codeine [Tylenol #3] 1 tab PO Q6H PRN #12 tab 03/07/17 Unknown Rx Clindamycin [Clindamycin CAP] 300 mg PO Q8HR 10 Days capsule 03/07/17 Unknown Rx Amoxicillin/K Clav Tab [Augmentin 1 tab PO Q12HR #20 tab 10/12/17 Unknown Rx 875 mg] Ibuprofen [Motrin] 600 mg PO Q8H PRN #30 tablet 10/12/17 Unknown Rx Naproxen [Naprosyn] 500 mg PO BID PRN #12 tablet 09/17/18 Unknown Rx cephALEXin [Keflex] 500 mg PO Q8HR 7 Days #14 cap 09/17/18 Unknown Rx ALBUTEROL Inhaler (OR & NICU) 2 puff IH QID PRN #1 inhalation 12/15/18 Unknown Rx [ProAir HFA Inhaler] Sucralfate [Carafate] 1 gm PO QID 15 Days oral.susp 12/15/18 Unknown Rx ALPRAZolam [Xanax TAB] 0.25 mg PO BID PRN #6 tab 01/14/19 Unknown Rx Butalb/Acetamin/Caff 50-325-40 1 tab PO Q6HR PRN #12 tab 01/14/19 Unknown Rx [Fioricet] ED Physical Exam - General Limitations: No Limitations General appearance: alert, in no apparent distress - Head Head exam: Present: atraumatic, normocephalic - Eye Eye exam: Present: normal appearance, PERRL - ENT ENT exam: Present: mucous membranes moist - Respiratory Respiratory exam: Present: normal lung sounds bilaterally. Absent: respiratory distress, wheezes, rales, rhonchi, stridor, chest wall tenderness, accessory muscle use, decreased breath sounds, prolonged expiratory - Cardiovascular Cardiovascular Exam: Present: regular rate, normal rhythm, normal heart sounds. Absent: systolic murmur, diastolic murmur, rubs, gallop - Extremities Exam Extremities exam: Absent: pedal edema - Neurological Exam Neurological exam: Present: alert, oriented X3 - Psychiatric Psychiatric exam: Present: normal affect, normal mood - Skin Skin exam: Present: warm, dry, intact ED Course Vital Signs 03/21/19 19:40 Temperature 98.3 F Pulse Rate 88 Respiratory 16 Rate Blood Pressure 129/78 O2 Sat by Pulse 99 Oximetry ED Medical Decision Making - Lab Data Result diagrams: 03/21/19 19:34 03/21/19 19:34 Lab Results 03/21/19 03/21/19 03/21/19 Range/Units 19:34 19:34 19:34 WBC 6.0 (4.5-11.0) K/mm3 RBC 4.80 (3.65-5.03) M/mm3 Hgb 13.0 (10.1-14.3) gm/dl Hct 38.9 (30.3-42.9) % MCV 81 (79-97) fl MCH 27 L (28-32) pg MCHC 33 (30-34) % RDW 14.3 (13.2-15.2) % Plt Count 198 (140-440) K/mm3 Lymph % (Auto) 33.3 (13.4-35.0) % [place] % (Auto) 7.2 (0.0-7.3) % Eos % (Auto) 2.1 (0.0-4.3) % Baso % (Auto) 0.7 (0.0-1.8) % Lymph # 2.0 (1.2-5.4) K/mm3 [place] # 0.4 (0.0-0.8) K/mm3 Eos # 0.1 (0.0-0.4) K/mm3 Baso # 0.0 (0.0-0.1) K/mm3 Seg Neutrophils % 56.7 (40.0-70.0) % Seg Neutrophils # 3.4 (1.8-7.7) K/mm3 PT 13.8 (12.2-14.9) Sec. INR 1.00 (0.87-1.13) APTT 33.0 (24.2-36.6) Sec. D-Dimer < 135.00 (0-234) ng/mlDDU Sodium 138 (137-145) mmol/L Potassium 4.3 (3.6-5.0) mmol/L Chloride 104.6 (98-107) mmol/L Carbon Dioxide 21 L (22-30) mmol/L Anion Gap 17 mmol/L BUN 15 (7-17) mg/dL Creatinine 0.7 (0.7-1.2) mg/dL Estimated GFR > 60 ml/min BUN/Creatinine Ratio 21 % Glucose 104 H (65-100) mg/dL Calcium 9.3 (8.4-10.2) mg/dL Troponin T < 0.010 (0.00-0.029) ng/mL NT-Pro-B Natriuret Pep 145.9 (0-450) pg/mL Vital Signs 03/21/19 19:40 Temperature 98.3 F Pulse Rate 88 Respiratory 16 Rate Blood Pressure 129/78 O2 Sat by Pulse 99 Oximetry - Medical Decision Making Pt is a 38 yo female who presents to the ED with c/o feeling like she has to take a "deep breaths" for the last month. she denies any SOB. She states she has chest heaviness. she denies any cough, congestion, radiation of the pain, or LE edema. pt states she saw her PCP for this and was diagnosed with anxiety/depression and started on hydroxyzine and zoloft. she has also been seen in the ED for this complaint. she also saw pulmonology and states she was given an albuterol inhaler. PSHx: hysterectomy 2004 discussed with pt that her first set of lab work was WNL, CXR normal, EKG normal, discussed with pt that she would need to have repeat troponin prior to discharge, pt requested medication for acid reflux symptoms, advised pt would order meds for acid reflux, pt was agreeable, nurse went to bring pt medications and pt eloped, pt did not receive her second [facility] Critical care attestation.: If time is entered above; I have spent that time in minutes in the direct care of this critically ill patient, excluding procedure time. ED Disposition Clinical Impression: Breathing difficulty, Chest tightness Disposition: ELOPED Is pt being admited?: No Does the pt Need Aspirin: No Condition: Undetermined Referrals: PRIMARY CARE, [Primary Care Provider] - CHRISTEN
[2019-03-21 19:57] LABS: Basophils % (Auto) 0.7 % (0.0-1.8); Eosinophils # (Auto) 0.1 K/mm3 (0.0-0.4); Eosinophils % (Auto) 2.1 % (0.0-4.3); Hematocrit 38.9 % (30.3-42.9); Lymphocytes % (Auto) 33.3 % (13.4-35.0); Mean Corpuscular HGB Conc 33 % (30-34); Mean Corpuscular Volume 81 fl (79-97); Monocytes # (Auto) 0.4 K/mm3 (0.0-0.8); Monocytes % (Auto) 7.2 % (0.0-7.3); Platelet Count 198 K/mm3 (140-440); Red Cell Distribution Width 14.3 % (13.2-15.2)
--- NOTE | 2019-03-21 20:22 | XRay Report ---
PROCEDURE: XR CHEST ROUTINE 2V TECHNIQUE: PA and lateral chest radiographs were obtained. HISTORY: Chest Pain COMPARISONS: None. FINDINGS: Heart: Normal. Mediastinum/Vessels: Normal. Lungs/Pleural space: Normal. Bony thorax: No acute osseous abnormality. IMPRESSION: No acute cardiopulmonary process seen.. This document is electronically signed by Amy Weeks MD., Mar 21 2019 08:20:37 PM ET
[2019-03-21 20:32] LABS: BUN/Creatinine Ratio 21; Blood Urea Nitrogen 15 mg/dL (7-17); Calcium 9.3 mg/dL (8.4-10.2); Hemolysis Index 51
[2019-03-21] MEDS ORDERED: TORADOL PO ONE (21:23)
[2019-03-21] MEDS ORDERED: TYLENOL ONE ×2 (21:37)
[2019-03-21] MEDS ORDERED: ALUM-MAG HYDROX-SIMETH 200-200-20MG/5ML PO ONE (21:38)
[2019-03-21] MEDS ORDERED: LIDOCAINE VISCOUS 2% PO ONE (21:38)
[2019-03-21] MEDS ORDERED: BENTYL PO ONE (21:39)
[2019-03-21] MEDS ORDERED: TYLENOL PO ONE (21:41)
[2019-03-21 23:13] VITALS: BP 129/78
== END 2019-03-21 23:14 | disposition left against medical advice (07) ==
LOC: ED 17:25
DX: R07.1 Chest pain on breathing (principal); I10 Essential (primary) hypertension; K21.9 Gastro-esophageal reflux disease without esophagitis; J45.909 Unspecified asthma, uncomplicated; Z86.2 Personal history of diseases of the blood and blood-forming organs and certain disorders involving the immune mechanism; Z90.710 Acquired absence of both cervix and uterus
CPT/HCPCS: 36415; 71046; 80048; 83880; 84484; 85025; 85379; 85610; 85730; 93005; 93010; 99283

== ENCOUNTER 2019-04-03 14:10 | Emergency (ER) | payer BC ==
--- NOTE | 2019-04-03 14:25 | Emergency Department Report ---
Blank Doc - Documentation Documentation: This is a 38-year-old female that presents with SOB. History of similar sympt oms for a few weeks. Sees a PCP and stated patient needs CT scan. This initial assessment/diagnostic orders/clinical plan/treatment(s) is/are subject to change based on patient's health status, clinical progression and re- assessment by fellow clinical providers in the ED. Further treatment and workup at subsequent clinical providers discretion. Patient/guardians urged not to elope from the ED as their condition may be serious if not clinically assessed and managed. Initial orders include: 1- Patient sent to [facility] for further evaluation and treatment 2- CXR 3- labs for possible CT of chest
[2019-04-03 14:55] LABS: Basophils % (Auto) 0.3 % (0.0-1.8); Eosinophils % (Auto) 0.2 % (0.0-4.3); Hematocrit 40.9 % (30.3-42.9); Hemoglobin 13.7 gm/dl (10.1-14.3); Lymphocytes # (Auto) 0.9 K/mm3 (1.2-5.4); Lymphocytes % (Auto) 10.7 % (13.4-35.0); Mean Corpuscular HGB Conc 33 % (30-34); Mean Corpuscular Volume 81 fl (79-97); Monocytes # (Auto) 0.2 K/mm3 (0.0-0.8); Monocytes % (Auto) 2.4 % (0.0-7.3); Platelet Count 247 K/mm3 (140-440); Red Blood Count 5.07 M/mm3 (3.65-5.03); Red Cell Distribution Width 13.6 % (13.2-15.2)
[2019-04-03 15:15] LABS: BUN/Creatinine Ratio 24; Blood Urea Nitrogen 17 mg/dL (7-17); Calcium 9.3 mg/dL (8.4-10.2); Hemolysis Index 2
--- NOTE | 2019-04-03 16:06 | XRay Report ---
EXAM: XR CHEST ROUTINE 2V HISTORY: cough TECHNIQUE: PA and lateral chest x-ray dated April 03, 2019 at 3:19 PM. COMPARISON: None available. FINDINGS: The heart size and mediastinum are within normal limits. There is mild linear lingular atelectasis. T he lung pyle and costophrenic angles are otherwise clear. There is no acute parenchymal infiltrate , pleural effusion, or pneumothorax seen. The visualized bony structures are within normal limits. IMPRESSION: 1. No evidence for acute cardiopulmonary disease seen. This document is electronically signed by Edel Beal MD., April 03 2019 04:04:28 PM ET
--- NOTE | 2019-04-03 16:44 | Emergency Department Report ---
ED Shortness of Breath HPI - General Chief Complaint: Dyspnea/Respdistress Stated Complaint: SOB/BACK PAIN Time Seen by Provider: 04/03/19 14:23 Source: patient Mode of arrival: Ambulatory Limitations: No Limitations - History of Present Illness Initial Comments: This is a 38-year-old -[place] female who presents to the emergency room with difficulty breathing and increased upper back pain 2 weeks. Patient reports similar symptoms since November of this year. Patient states she was seen in this emergency room several times her referral to a process safety manager. Patient states she was seen by Dr. Mckinney and told she have restriction in breathing. She have a scheduled CT of Chest 04/15/2019 but symptoms are worsening. MD Complaint: shortness of breath Onset/Timin -: week(s) Severity: moderate Consistency: intermittent Improves With: rest, upright position Worsens With: exertion, movement Associated Symptoms: denies other symptoms Treatments Prior to Arrival: none - Related Data Home Oxygen Therapy: No Home Medications Medication Instructions Recorded Confirmed Last Taken Ibuprofen [Motrin 800 MG tab] 800 mg PO Q8H PRN 03/01/15 03/01/15 Unknown Previous Rx's Medication Instructions Recorded Last Taken Type Ferrous Sulfate [Feosol 325 MG tab] 325 mg PO BID #60 tablet 03/09/15 Unknown Rx Acyclovir [Acyclovir Ointment] 1 applicatio TP 5XD PRN #1 tube 06/07/16 Unknown Rx Acetaminophen/Codeine [Tylenol #3] 1 tab PO Q6H PRN #12 tab 03/07/17 Unknown Rx Clindamycin [Clindamycin CAP] 300 mg PO Q8HR 10 Days capsule 03/07/17 Unknown Rx Amoxicillin/K Clav Tab [Augmentin 1 tab PO Q12HR #20 tab 10/12/17 Unknown Rx 875 mg] Ibuprofen [Motrin] 600 mg PO Q8H PRN #30 tablet 10/12/17 Unknown Rx Naproxen [Naprosyn] 500 mg PO BID PRN #12 tablet 09/17/18 Unknown Rx cephALEXin [Keflex] 500 mg PO Q8HR 7 Days #14 cap 09/17/18 Unknown Rx ALBUTEROL Inhaler (OR & NICU) 2 puff IH QID PRN #1 inhalation 12/15/18 Unknown Rx [ProAir HFA Inhaler] Sucralfate [Carafate] 1 gm PO QID 15 Days oral.susp 12/15/18 Unknown Rx ALPRAZolam [Xanax TAB] 0.25 mg PO BID PRN #6 tab 01/14/19 Unknown Rx Butalb/Acetamin/Caff 50-325-40 1 tab PO Q6HR PRN #12 tab 01/14/19 Unknown Rx [Fioricet] ALBUTEROL Inhaler (OR & NICU) 2 puff IH QID PRN #1 inhalation 04/03/19 Unknown Rx [ProAir HFA Inhaler] Azithromycin [Zithromax Z-ALEJANDRO] 250 mg PO DAILY #6 tablet 04/03/19 Unknown Rx Allergies Allergy/AdvReac Type Severity Reaction Status Date / Time No Known Allergies Allergy Verified 04/03/19 14:25 ED Review of Systems ROS: Stated complaint: SOB/BACK PAIN Other details as noted in HPI Constitutional: denies: chills, fever Respiratory: shortness of breath, SOB with exertion. denies: cough, wheezing Cardiovascular: denies: chest pain, palpitations Gastrointestinal: denies: abdominal pain, nausea, diarrhea Neurological: denies: headache, weakness, paresthesias Psychiatric: denies: anxiety, depression ED Past Medical Hx - Past Medical History Previous Medical History?: Yes Hx Hypertension: Yes Hx Heart Attack/AMI: No Hx Congestive Heart Failure: No Hx Diabetes: No Hx Deep Vein Thrombosis: No Hx Pulmonary Embolism: No Hx GERD: Yes Hx Liver Disease: No Hx Renal Disease: No Hx Sickle Cell Disease: No Hx Arthritis: No Hx Headaches / Migraines: No Hx Seizures: No Hx Kidney Stones: No Hx Asthma: Yes Hx COPD: No Hx Tuberculosis: No Hx Dementia: No Hx HIV: No Additional medical history: anemia, herpes - Surgical History Past Surgical History?: Yes Hx Coronary Stent: No Hx Pacemaker: No Hx Internal Defibrillator: No Additional Surgical History: x 4. Hysterectomy 03/06/15 - Social History Smoking Status: Never Smoker - Medications Home Medications: Home Medications Medication Instructions Recorded Confirmed Last Taken Type Ibuprofen [Motrin 800 MG tab] 800 mg PO Q8H PRN 03/01/15 03/01/15 Unknown History Ferrous Sulfate [Feosol 325 MG tab] 325 mg PO BID #60 tablet 03/09/15 Unknown Rx Acyclovir [Acyclovir Ointment] 1 applicatio TP 5XD PRN #1 tube 06/07/16 Unknown Rx Acetaminophen/Codeine [Tylenol #3] 1 tab PO Q6H PRN #12 tab 03/07/17 Unknown Rx Clindamycin [Clindamycin CAP] 300 mg PO Q8HR 10 Days capsule 03/07/17 Unknown Rx Amoxicillin/K Clav Tab [Augmentin 1 tab PO Q12HR #20 tab 10/12/17 Unknown Rx 875 mg] Ibuprofen [Motrin] 600 mg PO Q8H PRN #30 tablet 10/12/17 Unknown Rx Naproxen [Naprosyn] 500 mg PO BID PRN #12 tablet 09/17/18 Unknown Rx cephALEXin [Keflex] 500 mg PO Q8HR 7 Days #14 cap 09/17/18 Unknown Rx ALBUTEROL Inhaler (OR & NICU) 2 puff IH QID PRN #1 inhalation 12/15/18 Unknown Rx [ProAir HFA Inhaler] Sucralfate [Carafate] 1 gm PO QID 15 Days oral.susp 12/15/18 Unknown Rx ALPRAZolam [Xanax TAB] 0.25 mg PO BID PRN #6 tab 01/14/19 Unknown Rx Butalb/Acetamin/Caff 50-325-40 1 tab PO Q6HR PRN #12 tab 01/14/19 Unknown Rx [Fioricet] ALBUTEROL Inhaler (OR & NICU) 2 puff IH QID PRN #1 inhalation 04/03/19 Unknown Rx [ProAir HFA Inhaler] Azithromycin [Zithromax Z-ALEJANDRO] 250 mg PO DAILY #6 tablet 04/03/19 Unknown Rx ED Physical Exam - General Limitations: No Limitations General appearance: alert, in no apparent distress - ENT ENT exam: Present: mucous membranes moist - Respiratory Respiratory exam: Present: normal lung sounds bilaterally. Absent: respiratory distress, chest wall tenderness - Cardiovascular Cardiovascular Exam: Present: regular rate, normal rhythm. Absent: systolic murmur, diastolic murmur, rubs, gallop - GI/Abdominal GI/Abdominal exam: Present: soft, normal bowel sounds - Neurological Exam Neurological exam: Present: alert, oriented X3 - Psychiatric Psychiatric exam: Present: normal affect, normal mood - Skin Skin exam: Present: warm, dry, intact, normal color. Absent: rash ED Course Vital Signs 04/03/19 14:24 Temperature 98.1 F Pulse Rate 91 H Respiratory 16 Rate Blood Pressure 128/81 [Right] O2 Sat by Pulse 97 Oximetry ED Medical Decision Making - Lab Data Result diagrams: 04/03/19 14:31 04/03/19 14:31 Lab Results 04/03/19 04/03/19 04/03/19 Range/Units 14:31 14:31 14:31 WBC 8.1 (4.5-11.0) K/mm3 RBC 5.07 H (3.65-5.03) M/mm3 Hgb 13.7 (10.1-14.3) gm/dl Hct 40.9 (30.3-42.9) % MCV 81 (79-97) fl MCH 27 L (28-32) pg MCHC 33 (30-34) % RDW 13.6 (13.2-15.2) % Plt Count 247 (140-440) K/mm3 Lymph % (Auto) 10.7 L (13.4-35.0) % [place] % (Auto) 2.4 (0.0-7.3) % Eos % (Auto) 0.2 (0.0-4.3) % Baso % (Auto) 0.3 (0.0-1.8) % Lymph # 0.9 L (1.2-5.4) K/mm3 [place] # 0.2 (0.0-0.8) K/mm3 Eos # 0.0 (0.0-0.4) K/mm3 Baso # 0.0 (0.0-0.1) K/mm3 Seg Neutrophils % 86.4 H (40.0-70.0) % Seg Neutrophils # 7.0 (1.8-7.7) K/mm3 Sodium 139 (137-145) mmol/L Potassium 4.1 (3.6-5.0) mmol/L Chloride 102.6 (98-107) mmol/L Carbon Dioxide 22 (22-30) mmol/L Anion Gap 19 mmol/L BUN 17 (7-17) mg/dL Creatinine 0.7 (0.7-1.2) mg/dL Estimated GFR > 60 ml/min BUN/Creatinine Ratio 24 % Glucose 139 H (65-100) mg/dL Calcium 9.3 (8.4-10.2) mg/dL HCG, Qual Negative (Negative) - Radiology Data Radiology results: report reviewed EXAM: XR CHEST ROUTINE 2V HISTORY: cough TECHNIQUE: PA and lateral chest x-ray dated April 03, 2019 at 3:19 PM. COMPARISON: None available. FINDINGS: The heart size and mediastinum are within normal limits. There is mild linear lingular atelectasis. The lung pyle and costophrenic angles are otherwise clear. There is no acute parenchymal infiltrate, pleural effusion, or pneumothorax seen. The visualized bony structures are within normal limits. IMPRESSION: 1. No evidence for acute cardiopulmonary disease seen. EXAM: CT CHEST WO CON HISTORY: SOB, PT REFUSED CONTRAST. TECHNIQUE: Multislice axial with reformations. COMPARISON: None FINDINGS: The unenhanced great vessels demonstrate normal caliber and contour. The mediast inum is unremarkable. No pleural or pericardial effusion. No pneumothorax. There is mild dependent atelectasis. The lungs are otherwise clear. 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 IMPRESSION: Mild atelectasis. Otherwise no acute abnormality identified. - Medical Decision Making Patient is stable and was examined by me. No acute signs of distress noted. La bs were obtained and all unremarkable. Chest xray has been obtained and dictated by radiologist. No acute cardiopulmonary findings. A CT scan without contrast of the chest was obtained. Mild atelectasis. Otherwise no acute abnormality identified. Patient will be started on azithromycin and an inhaler and hopes to improve atelectasis. No further questions noted. Discharged home with amoxicillin. Follow-up with process safety manager and her primary care doctor. Critical care attestation.: If time is entered above; I have spent that time in minutes in the direct care of this critically ill patient, excluding procedure time. ED Disposition Clinical Impression: Breathing difficulty, Mild basilar atelectasis of both lungs Disposition: DC-01 TO HOME OR SELFCARE Is pt being admited?: No Does the pt Need Aspirin: No Condition: Stable Additional Instructions: Complete full course of medication as prescribed. Follow up with primary care doctor and process safety manager. Increase fluids to prevent dehydration. Avoid smoking and rest. Prescriptions: ALBUTEROL Inhaler (OR & NICU) [ProAir HFA Inhaler] 2 puff IH QID PRN #1 inhalation PRN Reason: Shortness Of Breath Azithromycin [Zithromax Z-ALEJANDRO] 250 mg PO DAILY #6 tablet Referrals: CARBUCCIA,DOROTA, MD [Primary Care Provider] - 3-5 Days NATHAN JORDAN MD [Staff Physician] - 3-5 Days [facility] [Provider Group] - 3-5 Days [facility] [Provider Group] - 3-5 Days [facility] [Provider Group] - 3-5 Days Forms: Work/School Release Form(ED) Time of Disposition: 19:14
--- NOTE | 2019-04-03 18:54 | Cat Scan Report ---
EXAM: CT CHEST WO CON HISTORY: SOB, PT REFUSED CONTRAST. TECHNIQUE: Multislice axial with reformations. COMPARISON: None FINDINGS: The unenhanced great vessels demonstrate normal caliber and contour. The mediastinum is unremarkable . No pleural or pericardial effusion. No pneumothorax. There is mild dependent atelectasis. The lungs are otherwise clear. 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 IMPRESSION: Mild atelectasis. Otherwise no acute abnormality identified. This document is electronically signed by Bola Coughlin MD., April 03 2019 06:53:12 PM ET
[2019-04-03 19:27] VITALS: BP 132/87
== END 2019-04-03 19:22 | disposition home or self-care (01) ==
LOC: ED 14:10
DX: J98.11 Atelectasis (principal); I10 Essential (primary) hypertension; K21.9 Gastro-esophageal reflux disease without esophagitis; J45.909 Unspecified asthma, uncomplicated; Z90.710 Acquired absence of both cervix and uterus; Z79.899 Other long term (current) drug therapy
CPT/HCPCS: 36415; 71046; 71250; 80048; 84703; 85025; 99284

== ENCOUNTER 2020-02-17 11:47 | Emergency (ER) | payer BC ==
[2020-02-17] MEDS ORDERED: SODIUM CHLORIDE 0.9% 1000 ML 1,000 ML IV ONE (13:28)
[2020-02-17] MEDS ORDERED: KETOROLAC 30 MG/1 ML INJ IV ONE (13:28)
--- NOTE | 2020-02-17 15:10 | Cat Scan Report ---
CT head/brain wo con INDICATION: Headache. TECHNIQUE: Routine CT head without contrast. All CT scans at this location are performed using CT dos e reduction for ALARA by means of automated exposure control. COMPARISON: None. FINDINGS: BRAIN / INTRACRANIAL CONTENTS: No acute hemorrhage, mass effect, midline shift, or hydrocephalus. No appreciable acute large territorial or lacunar infarct. No chronic infarct or focal atrophy. Normal b rain volume and ventricular/sulcal size for age. ORBITS: No significant abnormality of visualized orbits. SINUSES / MASTOIDS: No significant abnormality of visualized sinuses and mastoid air cells. ADDITIONAL FINDINGS: None. IMPRESSION: 1. Negative head CT. Signer Name: Hari De La Garza MD Signed: 02/17/2020 3:06 PM Workstation Name: [id number]
--- NOTE | 2020-02-17 15:12 | Cat Scan Report ---
CT CERVICAL SPINE WITHOUT CONTRAST INDICATION: Neck pain. TECHNIQUE: Axial CT images of the spine were obtained. Sagittal and coronal reformatted images were produced. Al l CT scans at this location are performed using CT dose reduction for ALARA by means of automated exp osure control. COMPARISON: None available. FINDINGS: ACUTE FRACTURE(S) OR SUBLUXATION: None. SPINAL DEGENERATIVE CHANGES: There is mild degenerative disc disease at C4-5 and C5-6 with mild disc height loss and endplate osteophyte formation. There is no appreciable significant spinal canal steno sis or neural foraminal stenosis. There are no aggressive appearing bone lesions. PARASPINAL SOFT TISSUES: No soft tissue swelling or other acute abnormalities. ADDITIONAL FINDINGS: No significant additional findings. IMPRESSION: 1. Mild degenerative findings at C4-5 and C5-6 without appreciable spinal canal or neural foraminal s tenosis. 2. No acute findings. Signer Name: Hari De La Garza MD Signed: 02/17/2020 3:08 PM Workstation Name: [id number]
[2020-02-17] MEDS ORDERED: dexAMETHasone 20 MG/5 ML VIAL IV ONE (15:18)
--- NOTE | 2020-02-17 15:23 | Emergency Department Report ---
ED Headache HPI - General Chief Complaint: Headache Stated Complaint: HEADACHE Time Seen by Provider: 02/17/20 13:05 Source: patient Exam Limitations: no limitations - History of Present Illness Initial Comments: 39 yo F reports headache x 2 weeks, left neck pain x 5 days. Pt denies trauma. Denies hx of headaches. States BARROS is left-sided. Pain has been relieved w/ excedrin. She reports left neck pain and stiffness x 5 days, worse with leftward rotation of neck. She reports gradual onset of all of her pain. States her PCP called in tylenol #3 and tizanidine, today is her first day taking the medication. Patient reports mild abdominal discomfort, nausea, urinary frequency since yesterday. She denies fever, cough, shortness of breath. Timing/Duration: other (2 weeks) Quality: moderate Recent Head Trauma: no recent headache/trauma Modifying Factors: improves with: movement Associated Symptoms: nausea/vomiting, stiff neck. denies: fever/chills, nasal congestion, nasal drainage Allergies/Adverse Reactions: Allergies No Known Allergies Allergy (Verified 02/17/20 11:52) Home Medications: Ambulatory Orders Ibuprofen [Motrin 800 MG tab] 800 mg PO Q8H PRN 03/01/15 Ferrous Sulfate [Feosol 325 MG tab] 325 mg PO BID #60 tablet 03/09/15 Acyclovir [Acyclovir Ointment] 1 applicatio TP 5XD PRN #1 tube 06/07/16 Acetaminophen/Codeine [Tylenol #3] 1 tab PO Q6H PRN #12 tab 03/07/17 Clindamycin [Clindamycin CAP] 300 mg PO Q8HR 10 Days capsule 03/07/17 Amoxicillin/K Clav Tab [Augmentin 875 mg] 1 tab PO Q12HR #20 tab 10/12/17 Ibuprofen [Motrin] 600 mg PO Q8H PRN #30 tablet 10/12/17 Naproxen [Naprosyn] 500 mg PO BID PRN #12 tablet 09/17/18 cephALEXin [Keflex] 500 mg PO Q8HR 7 Days #14 cap 09/17/18 Albuterol INH(or & Nicu Only) [ProAir HFA Inhaler] 2 puff IH QID PRN #1 inha lation 12/15/18 Sucralfate [Carafate] 1 gm PO QID 15 Days oral.susp 12/15/18 ALPRAZolam [Xanax TAB] 0.25 mg PO BID PRN #6 tab 01/14/19 Butalb/Acetamin/Caff 50-325-40 [Fioricet] 1 tab PO Q6HR PRN #12 tab 01/14/19 Albuterol INH(or & Nicu Only) [ProAir HFA Inhaler] 2 puff IH QID PRN #1 inhalation 04/03/19 Azithromycin [Zithromax Z-ALEJANDRO] 250 mg PO DAILY #6 tablet 04/03/19 Butalb/Acetamin/Caff 50-325-40 [Fioricet] 1 tab PO Q6HR PRN #10 tab 02/17/20 diazePAM TAB [Valium] 5 mg PO BID PRN #10 tablet 02/17/20 ED Review of Systems ROS: Stated complaint: HEADACHE/NAUSEA/STIFF NECK Other details as noted in HPI Comment: All other systems reviewed and negative Constitutional: denies: chills, fever ENT: denies: throat pain Respiratory: denies: cough, shortness of breath Gastrointestinal: nausea. denies: vomiting Genitourinary: frequency Neurological: headache. denies: weakness, numbness ED Past Medical Hx - Past Medical History Hx Hypertension: No Hx Heart Attack/AMI: No Hx Congestive Heart Failure: No Hx Diabetes: No Hx Deep Vein Thrombosis: No Hx Pulmonary Embolism: No Hx GERD: Yes Hx Liver Disease: No Hx Renal Disease: No Hx Sickle Cell Disease: No Hx Arthritis: No Hx Headaches / Migraines: No Hx Seizures: No Hx Kidney Stones: No Hx Asthma: Yes Hx COPD: No Hx Tuberculosis: No Hx Dementia: No Hx HIV: No Additional medical history: anemia, herpes - Surgical History Hx Coronary Stent: No Hx Pacemaker: No Hx Internal Defibrillator: No Additional Surgical History: x 4. Hysterectomy 03/06/15 - Social History Smoking Status: Never Smoker Substance Use Type: None - Medications Home Medications: Home Medications Medication Instructions Recorded Confirmed Last Taken Type Ibuprofen [Motrin 800 MG tab] 800 mg PO Q8H PRN 03/01/15 03/01/15 Unknown History Ferrous Sulfate [Feosol 325 MG tab] 325 mg PO BID #60 tablet 03/09/15 Unknown Rx Acyclovir [Acyclovir Ointment] 1 applicatio TP 5XD PRN #1 tube 06/07/16 Unknown Rx Acetaminophen/Codeine [Tylenol #3] 1 tab PO Q6H PRN #12 tab 03/07/17 Unknown Rx Clindamycin [Clindamycin CAP] 300 mg PO Q8HR 10 Days capsule 03/07/17 Unknown Rx Amoxicillin/K Clav Tab [Augmentin 1 tab PO Q12HR #20 tab 10/12/17 Unknown Rx 875 mg] Ibuprofen [Motrin] 600 mg PO Q8H PRN #30 tablet 10/12/17 Unknown Rx Naproxen [Naprosyn] 500 mg PO BID PRN #12 tablet 09/17/18 Unknown Rx cephALEXin [Keflex] 500 mg PO Q8HR 7 Days #14 cap 09/17/18 Unknown Rx Albuterol INH(or & Nicu Only) 2 puff IH QID PRN #1 inhalation 12/15/18 Unknown Rx [ProAir HFA Inhaler] Sucralfate [Carafate] 1 gm PO QID 15 Days oral.susp 12/15/18 Unknown Rx ALPRAZolam [Xanax TAB] 0.25 mg PO BID PRN #6 tab 01/14/19 Unknown Rx Butalb/Acetamin/Caff 50-325-40 1 tab PO Q6HR PRN #12 tab 01/14/19 Unknown Rx [Fioricet] Albuterol INH(or & Nicu Only) 2 puff IH QID PRN #1 inhalation 04/03/19 Unknown Rx [ProAir HFA Inhaler] Azithromycin [Zithromax Z-ALEJANDRO] 250 mg PO DAILY #6 tablet 04/03/19 Unknown Rx Butalb/Acetamin/Caff 50-325-40 1 tab PO Q6HR PRN #10 tab 02/17/20 Unknown Rx [Fioricet] diazePAM TAB [Valium] 5 mg PO BID PRN #10 tablet 02/17/20 Unknown Rx ED Physical Exam - General Limitations: No Limitations General appearance: alert, in no apparent distress, obese - Head Head exam: Present: atraumatic, normocephalic - Eye Eye exam: Present: normal appearance, PERRL, EOMI - ENT ENT exam: Present: mucous membranes moist - Neck Neck exam: Present: normal inspection, tenderness (left paraspinal), other (decreased leftward rotation secondary to pain; rightward rota tion/flexion/extension intact) - Respiratory Respiratory exam: Present: normal lung sounds bilaterally. Absent: respiratory distress - Cardiovascular Cardiovascular Exam: Present: regular rate, normal rhythm - GI/Abdominal GI/Abdominal exam: Present: soft. Absent: distended, tenderness - Extremities Exam Extremities exam: Present: normal inspection - Neurological Exam Neurological exam: Present: alert, oriented X3, CN II-XII intact, normal gait. Absent: motor sensory deficit - Psychiatric Psychiatric exam: Present: normal affect, normal mood - Skin Skin exam: Present: warm, dry, intact, normal color. Absent: rash ED Course Vital Signs 02/17/20 02/17/20 02/17/20 11:58 13:02 13:15 Temperature 98.2 F Pulse Rate 79 Respiratory 14 Rate Blood Pressure 144/97 127/82 Blood Pressure [Left] O2 Sat by Pulse 99 100 100 Oximetry 02/17/20 02/17/20 02/17/20 13:30 16:21 16:30 Temperature Pulse Rate Respiratory Rate Blood Pressure 134/87 149/99 156/90 Blood Pressure [Left] O2 Sat by Pulse 100 100 Oximetry 02/17/20 16:33 Temperature Pulse Rate 84 Respiratory 16 Rate Blood Pressure Blood Pressure 156/80 [Left] O2 Sat by Pulse 100 Oximetry ED Medical Decision Making - Lab Data Result diagrams: 02/17/20 15:12 02/17/20 15:12 - Radiology Data Radiology results: report reviewed, image reviewed - Medical Decision Making 39 yo F w/ multiple complaints over the last 2 weeks which include left -sided BARROS and neck pain, abdominal pain, nausea, urinary frequency. Pt denies fever. She is afebrile here in the ED, with remainder of vitals normal except for a couple of mildy elevated blood pressures. On exam, pt is neurologically intact. CT Head is negative for any abnormal findings, CT C-spine shows some degenerative disease. Labs are unremarkable, WBCs normal. Pt complaining of left-sided neck pain. This may be due to torticollis as pain is worse with palpation and leftward rotation. I have a low suspicion for anything infectious such as meningitis. Pt given IV fluids, decadron, toradol. She reported mild relief of her symptoms. Valium was offered as a muscle relaxer, however, since pt is driving, will not give in ED and instead provide a prescription. Pt is comfortable with this plan. Pt will also be given a prescription for fioricet. I have also provided follow-up referrals. Return precautions given. - Differential Diagnosis migraine BARROS, cluster BARROS, intracranial injury, torticollis, meningitis Critical care attestation.: If time is entered above; I have spent that time in minutes in the direct care of this critically ill patient, excluding procedure time. ED Disposition Clinical Impression: Headache, Torticollis, acute Disposition: TO HOME OR SELFCARE Is pt being admited?: No Condition: Stable Instructions: Spasmodic Torticollis (ED), Acute Headache (ED) Prescriptions: Butalb/Acetamin/Caff 50-325-40 [Fioricet] 1 tab PO Q6HR PRN #10 tab PRN Reason: Headache diazePAM TAB [Valium] 5 mg PO BID PRN #10 tablet PRN Reason: Spasms Referrals: CHARANJIT VALERIO MD [Referring] - 3-5 Days PRIMARY CARE, [Referring] - 3-5 Days JOBY CARROLL MD [Staff Physician] - 3-5 Days
[2020-02-17 15:37] LABS: Basophils # (Auto) 0.1 K/mm3 (0.0-0.1); Basophils % (Auto) 1.7 % (0.0-1.8); Eosinophils # (Auto) 0.1 K/mm3 (0.0-0.4); Eosinophils % (Auto) 1.1 % (0.0-4.3); Hematocrit 42.5 % (30.3-42.9); Lymphocytes # (Auto) 1.8 K/mm3 (1.2-5.4); Mean Corpuscular HGB Conc 33 % (30-34); Mean Corpuscular Volume 81 fl (79-97); Monocytes # (Auto) 0.4 K/mm3 (0.0-0.8); Monocytes % (Auto) 5.9 % (0.0-7.3); Platelet Count 252 K/mm3 (140-440); Red Blood Count 5.27 M/mm3 (3.65-5.03); Red Cell Distribution Width 13.2 % (13.2-15.2)
[2020-02-17 15:50] LABS: BUN/Creatinine Ratio 14; Blood Urea Nitrogen 11 mg/dL (7-17); Calcium 9.6 mg/dL (8.4-10.2); Hemolysis Index 3
[2020-02-17 16:39] LABS: Bilirubin,Urine NEG (Negative); Blood,Urine NEG (Negative); Color,Urine Yellow (Yellow); Protein,Urine <15 mg/dL mg/dL (Negative); Urobilinogen,Urine < 2.0 mg/dL (<2.0); WBC,Urine < 1.0 /HPF (0.0-6.0)
[2020-02-17 16:45] VITALS: BP 156/90
== END 2020-02-17 17:12 | disposition home or self-care (01) ==
LOC: ED 11:47
DX: M43.6 Torticollis (principal); R51 Headache; D64.9 Anemia, unspecified; K21.9 Gastro-esophageal reflux disease without esophagitis; J45.909 Unspecified asthma, uncomplicated; Z98.890 Other specified postprocedural states; Z79.899 Other long term (current) drug therapy; Z90.710 Acquired absence of both cervix and uterus
CPT/HCPCS: 36415; 70450; 72125; 80048; 81001; 85025; 96374; 96375; 99284; J1100; J1885; J7030

== ENCOUNTER 2020-04-01 22:29 | Emergency (ER) | payer BC | END 2020-04-01 22:43 | disposition left against medical advice (07) | LOC: ED 22:29 | DX: R07.89 Other chest pain (principal); Z53.21 Procedure and treatment not carried out due to patient leaving prior to being seen by health care provider | CPT/HCPCS: 93005 ==

== ENCOUNTER 2020-07-14 16:16 | Emergency (ER) | payer BC, OTHER ==
[2020-07-14 16:22] VITALS: BP 141/93
[2020-07-14] MEDS ORDERED: ASPIRIN 325 MG TAB PO ONE (16:23)
== END 2020-07-14 20:29 | disposition left against medical advice (07) ==
LOC: ED 16:16
DX: M79.602 Pain in left arm (principal); Z53.21 Procedure and treatment not carried out due to patient leaving prior to being seen by health care provider
CPT/HCPCS: 93005

== ENCOUNTER 2021-05-03 08:56 | Emergency (ER) | payer SELFPAY ==
[2021-05-03 09:03] VITALS: BP 141/91
[2021-05-03 09:40] LABS: Bacteria,Urine 1+ /HPF (Negative); Bilirubin,Urine NEG (Negative); Blood,Urine NEG (Negative); Color,Urine Straw (Yellow); Protein,Urine <15 mg/dL mg/dL (Negative); Urobilinogen,Urine < 2.0 mg/dL (<2.0)
--- NOTE | 2021-05-03 10:07 | Emergency Department Report ---
ED Abdominal Pain HPI - General Chief Complaint: Abdominal Pain Stated Complaint: RT LOWER SIDE PAINS Source: patient Mode of arrival: Ambulatory Limitations: No Limitations - History of Present Illness Initial Comments: 40-year-old -[place] female presents to the emergency room complaining of right lower quadrant sharp intermittent pain that started yesterday. Patient states it makes it worse is walking makes it sore. She states lying down makes it better. Patient also complains of epigastric burning. She did take Tylenol at 8:00 this morning. She has had a hysterectomy. She states that she started having lower back pain this morning. She denies any dysuria no vaginal bleeding no vaginal discharge no trauma. Patient has a past medical history of anemia, herpes, hypertension and a hysterectomy 03/06/2015. Primary care provider is Dr. Stark. Patient admits to nausea but no vomiting. Denies any fever chills. Denies any diarrhea no constipation. MD Complaint: abdominal pain (Right lower quadrant, epigastric) Onset/Timin -: days(s) Location: RLQ, epigastric Severity scale (0 -10): 8 Consistency: intermittent Improves With: rest Worsens With: movement Associated Symptoms: nausea. denies: vomiting, diarrhea, fever, chills, constipation, dysuria, hematemesis, hematochezia, melena, hematuria, anorexia Treatments Prior to Arrival: other (Tylenol 8:00) - Related Data LMP (females 10-50): other (Hysterectomy 2014) Home Medications Medication Instructions Recorded Confirmed Last Taken Ibuprofen [Motrin 800 MG tab] 800 mg PO Q8H PRN 03/01/15 03/01/15 Unknown Previous Rx's Medication Instructions Recorded Last Taken Type Ferrous Sulfate [Feosol 325 MG tab] 325 mg PO BID #60 tablet 03/09/15 Unknown Rx Acyclovir [Acyclovir Ointment] 1 applicatio TP 5XD PRN #1 tube 06/07/16 Unknown Rx Acetaminophen/Codeine [Tylenol #3] 1 tab PO Q6H PRN #12 tab 03/07/17 Unknown Rx Clindamycin [Clindamycin CAP] 300 mg PO Q8HR 10 Days capsule 03/07/17 Unknown Rx Amoxicillin/K Clav Tab [Augmentin 1 tab PO Q12HR #20 tab 10/12/17 Unknown Rx 875 mg] Ibuprofen [Motrin] 600 mg PO Q8H PRN #30 tablet 10/12/17 Unknown Rx Naproxen [Naprosyn] 500 mg PO BID PRN #12 tablet 09/17/18 Unknown Rx cephALEXin [Keflex] 500 mg PO Q8HR 7 Days #14 cap 09/17/18 Unknown Rx Albuterol Mdi (or & Nicu Only) 2 puff IH QID PRN #1 inhalation 12/15/18 Unknown Rx [ProAir HFA Inhaler] Sucralfate [Carafate] 1 gm PO QID 15 Days oral.susp 12/15/18 Unknown Rx ALPRAZolam [Xanax TAB] 0.25 mg PO BID PRN #6 tab 01/14/19 Unknown Rx Butalb/Acetamin/Caff 50-325-40 1 tab PO Q6HR PRN #12 tab 01/14/19 Unknown Rx [Fioricet] Albuterol Mdi (or & Nicu Only) 2 puff IH QID PRN #1 inhalation 04/03/19 Unknown Rx [ProAir HFA Inhaler] Azithromycin [Zithromax Z-ALEJANDRO] 250 mg PO DAILY #6 tablet 04/03/19 Unknown Rx Butalb/Acetamin/Caff 50-325-40 1 tab PO Q6HR PRN #10 tab 02/17/20 Unknown Rx [Fioricet] diazePAM TAB [Valium] 5 mg PO BID PRN #10 tablet 02/17/20 Unknown Rx Allergies Allergy/AdvReac Type Severity Reaction Status Date / Time No Known Allergies Allergy Verified 05/03/21 08:59 ED Review of Systems ROS: Stated complaint: RT LOWER SIDE PAINS Other details as noted in HPI Comment: All other systems reviewed and negative ED Past Medical Hx - Past Medical History Hx Hypertension: Yes Hx Heart Attack/AMI: No Hx Congestive Heart Failure: No Hx Diabetes: No Hx Deep Vein Thrombosis: No Hx Pulmonary Embolism: No Hx GERD: Yes Hx Liver Disease: No Hx Renal Disease: No Hx Sickle Cell Disease: No Hx Arthritis: No Hx Headaches / Migraines: No Hx Seizures: No Hx Kidney Stones: No Hx Asthma: Yes Hx COPD: No Hx Tuberculosis: No Hx Dementia: No Hx HIV: No Additional medical history: anemia, herpes - Surgical History Hx Coronary Stent: No Hx Pacemaker: No Hx Internal Defibrillator: No Additional Surgical History: x 4. Hysterectomy 03/06/15 - Social History Smoking Status: Never Smoker Substance Use Type: None - Medications Home Medications: Home Medications Medication Instructions Recorded Confirmed Last Taken Type Ibuprofen [Motrin 800 MG tab] 800 mg PO Q8H PRN 03/01/15 03/01/15 Unknown History Ferrous Sulfate [Feosol 325 MG tab] 325 mg PO BID #60 tablet 03/09/15 Unknown Rx Acyclovir [Acyclovir Ointment] 1 applicatio TP 5XD PRN #1 tube 06/07/16 Unknown Rx Acetaminophen/Codeine [Tylenol #3] 1 tab PO Q6H PRN #12 tab 03/07/17 Unknown Rx Clindamycin [Clindamycin CAP] 300 mg PO Q8HR 10 Days capsule 03/07/17 Unknown Rx Amoxicillin/K Clav Tab [Augmentin 1 tab PO Q12HR #20 tab 10/12/17 Unknown Rx 875 mg] Ibuprofen [Motrin] 600 mg PO Q8H PRN #30 tablet 10/12/17 Unknown Rx Naproxen [Naprosyn] 500 mg PO BID PRN #12 tablet 09/17/18 Unknown Rx cephALEXin [Keflex] 500 mg PO Q8HR 7 Days #14 cap 09/17/18 Unknown Rx Albuterol Mdi (or & Nicu Only) 2 puff IH QID PRN #1 inhalation 12/15/18 Unknown Rx [ProAir HFA Inhaler] Sucralfate [Carafate] 1 gm PO QID 15 Days oral.susp 12/15/18 Unknown Rx ALPRAZolam [Xanax TAB] 0.25 mg PO BID PRN #6 tab 01/14/19 Unknown Rx Butalb/Acetamin/Caff 50-325-40 1 tab PO Q6HR PRN #12 tab 01/14/19 Unknown Rx [Fioricet] Albuterol Mdi (or & Nicu Only) 2 puff IH QID PRN #1 inhalation 04/03/19 Unknown Rx [ProAir HFA Inhaler] Azithromycin [Zithromax Z-ALEJANDRO] 250 mg PO DAILY #6 tablet 04/03/19 Unknown Rx Butalb/Acetamin/Caff 50-325-40 1 tab PO Q6HR PRN #10 tab 02/17/20 Unknown Rx [Fioricet] diazePAM TAB [Valium] 5 mg PO BID PRN #10 tablet 02/17/20 Unknown Rx ED Physical Exam - General Limitations: No Limitations General appearance: alert, in no apparent distress - Head Head exam: Present: atraumatic, normocephalic - Eye Eye exam: Present: normal appearance - ENT ENT exam: Present: mucous membranes moist, normal external ear exam - Neck Neck exam: Present: normal inspection, full ROM - Respiratory Respiratory exam: Present: normal lung sounds bilaterally. Absent: respiratory distress, accessory muscle use - Cardiovascular Cardiovascular Exam: Present: regular rate - GI/Abdominal GI/Abdominal exam: Present: soft, tenderness (Right lower quadrant), rebound, normal bowel sounds. Absent: distended - Rectal Rectal exam: Present: deferred - Extremities Exam Extremities exam: Present: normal inspection, full ROM - Back Exam Back exam: Present: normal inspection, full ROM - Neurological Exam Neurological exam: Present: alert, oriented X3 - Psychiatric Psychiatric exam: Present: normal affect, normal mood - Skin Skin exam: Present: warm, dry, intact, normal color. Absent: rash ED Course Vital Signs 05/03/21 09:02 Temperature 98.8 F Pulse Rate 84 Respiratory 18 Rate Blood Pressure 141/91 O2 Sat by Pulse 99 Oximetry ED Medical Decision Making - Lab Data Result diagrams: 05/03/21 11:06 05/03/21 11:06 - Medical Decision Making 40-year-old -[place] female presents to the emergency room complaining of right lower quadrant sharp intermittent pain that started yesterday. Patient states it makes it worse is walking makes it sore. She states lying down makes it better. Patient also complains of epigastric burning. She did take Tylenol at 8:00 this morning. She has had a hysterectomy. She states that she started having lower back pain this morning. She denies any dysuria no vaginal bleeding no vaginal discharge no trauma. Patient has a past medical history of anemia, herpes, hypertension and a hysterectomy 03/06/2015. Primary care provider is Dr. Stark. Patient admits to nausea but no vomiting. Denies any fever chills. Denies any diarrhea no constipation. Multiple attempts to obtain INT for CT abdomen with contrast. Discussed with patient that all her labs are are within normal limits her vital signs are stable and normal limits. Discussed with patient that she reports her pain is improving. Discussed with patient that he can discharge her safely but per cautiously informed her to return back to the emergency room if she starts to have any more pain. Patient verbalized understanding. Critical care attestation.: If time is entered above; I have spent that time in minutes in the direct care of this critically ill patient, excluding procedure time. ED Disposition Clinical Impression: Acute abdominal pain in right lower quadrant Disposition: DC-01 TO HOME OR SELFCARE Is pt being admited?: No Does the pt Need Aspirin: No Condition: Stable Instructions: Abdominal Pain (ED), Abdominal Pain, Adult, [id number] Additional Instructions: Your labs are within normal limits your vital signs are stable. Your pain is improving. I would like for you to follow-up with a primary care provider in the next 2 to 3 days. Also I would like for you to return back to the emergency room if there is any further abdominal pain nausea vomiting fever chills. Referrals: [facility] [Provider Group] - 3-5 Days [facility] [Provider Group] - 3-5 Days Forms: Work/School Release Form(ED)
[2021-05-03 10:16] LABS: RBC,Urine < 1.0 /HPF (0.0-6.0)
[2021-05-03 12:07] LABS: Basophils % (Auto) 0.4 % (0.0-1.8); Eosinophils % (Auto) 0.8 % (0.0-4.3); Hematocrit 42.6 % (30.3-42.9); Lymphocytes # (Auto) 1.8 K/mm3 (1.2-5.4); Lymphocytes % (Auto) 32.5 % (13.4-35.0); Mean Corpuscular HGB Conc 33 % (30-34); Mean Corpuscular Volume 81 fl (79-97); Monocytes # (Auto) 0.3 K/mm3 (0.0-0.8); Monocytes % (Auto) 6.2 % (0.0-7.3); Platelet Count 240 K/mm3 (140-440); Red Blood Count 5.25 M/mm3 (3.65-5.03); Red Cell Distribution Width 13.3 % (13.2-15.2)
[2021-05-03 12:12] LABS: Alanine Aminotransferase 12 units/L (7-56); Albumin 4.6 g/dL (3.9-5); Blood Urea Nitrogen 8 mg/dL (7-17); Calcium 9.7 mg/dL (8.4-10.2); Hemolysis Index 11
[2021-05-03 12:16] LABS: BUN/Creatinine Ratio 11
== END 2021-05-03 13:26 | disposition home or self-care (01) ==
LOC: ED 08:56
DX: R10.31 Right lower quadrant pain (principal); I10 Essential (primary) hypertension; J45.909 Unspecified asthma, uncomplicated; K21.9 Gastro-esophageal reflux disease without esophagitis; D64.9 Anemia, unspecified; Z90.710 Acquired absence of both cervix and uterus; Z79.899 Other long term (current) drug therapy; Z98.890 Other specified postprocedural states
CPT/HCPCS: 36415; 80053; 81001; 83690; 85025

== ENCOUNTER 2022-03-14 12:18 | Emergency (ER) | payer SELFPAY ==
--- NOTE | 2022-03-14 16:44 | Cat Scan Report ---
CT BRAIN: 03/14/2022 INDICATION / CLINICAL INFORMATION: dizziness, vision changes. COMPARISON: CT brain 02/17/2020 FINDINGS: BRAIN/INTRACRANIAL STRUCTURES: Unenhanced CT images of the brain demonstrate no evidence of acute int racranial abnormality. Ventricles and sulci are normal in size and shape. There is no evidence of hemorrhage or mass. There are no abnormal extra-axial fluid collections. EXTRACRANIAL STRUCTURES: Unremarkable. IMPRESSION: No acute abnormality. No change when compared to 02/17/[address] scans at this location are performed using dose reduction to ALARA by means of automated expos ure control. Signer Name: Leeroy Baker MD Signed: 03/14/2022 4:40 PM Workstation Name: [id number]
[2022-03-14] MEDS ORDERED: MECLIZINE 25 MG TAB PO ONE (17:43)
[2022-03-14 17:56] LABS: Alanine Aminotransferase 22 units/L (7-56); Albumin 4.8 g/dL (3.9-5); BUN/Creatinine Ratio 11; Blood Urea Nitrogen 9 mg/dL (7-17); Calcium 9.8 mg/dL (8.4-10.2); Hemolysis Index 181
[2022-03-14 18:17] LABS: Hematocrit 41.1 % (30.3-42.9); Hemoglobin 13.2 gm/dl (10.1-14.3); Mean Corpuscular HGB Conc 32 % (30-34); Mean Corpuscular Volume 82 fl (79-97); Red Blood Count 5.03 M/mm3 (3.65-5.03); Red Cell Distribution Width 13.4 % (13.2-15.2)
[2022-03-14 18:18] LABS: Platelet Count 40 K/mm3 (140-440)
--- NOTE | 2022-03-14 18:47 | XRay Report ---
CHEST 2 VIEWS INDICATION / CLINICAL INFORMATION: Dizziness. COMPARISON: 04/03/19. FINDINGS: SUPPORT DEVICES: None. HEART / MEDIASTINUM: The heart size and pulmonary vasculature are normal. LUNGS / PLEURA: No significant pulmonary or pleural abnormality. No pneumothorax. ADDITIONAL FINDINGS: No significant additional findings. IMPRESSION: No acute abnormality. Signer Name: Luis E Newman MD Signed: 03/14/2022 6:43 PM Workstation Name: [id number]
[2022-03-14 19:13] LABS: Bacteria,Urine 1+ /HPF (Negative); Bilirubin,Urine NEG (Negative); Blood,Urine NEG (Negative); Color,Urine Straw (Yellow); Protein,Urine <15 mg/dL mg/dL (Negative); Urobilinogen,Urine < 2.0 mg/dL (<2.0)
--- NOTE | 2022-03-14 19:49 | Emergency Department Report ---
<CAMILODAVIDZULEYMADANIELENOEMÍ Jailyn - Last Filed: 03/15/22 00:34> ED Dizziness HPI - General Chief Complaint: Chest Pain Stated Complaint: FATIGUE/CP Time Seen by Provider: 03/14/22 15:12 Source: patient Mode of arrival: Ambulatory Limitations: No Limitations - History of Present Illness Initial Comments: 41 yo female with no pmh presents to the ed for evaluation of 5 day history of dizziness and light headedness that was worse this am. She states that she wakes up every morning with dizziness and the past few days she has had increas ing fatigue with nausea. She denies chest pain, sob, vomiting, diaphoresis, and fever. She states that she has had some blurred vision. MD Complaint: dizziness, lightheadedness -: Gradual, days(s) (5) Timing: awoke with symptoms Description: lightheadedness, nausea History of Same: No History of Trauma: No Severity: moderate Associated Symptoms: denies: ataxia, chest pain, confusion, cough, diaphoresis, fever/chills, loss of appetite, malaise, rash, seizure, shortness of breath, syncope, weakness - Related Data Home Medications Medication Instructions Recorded Confirmed Last Taken Ibuprofen [Motrin 800 MG tab] 800 mg PO Q8H PRN 03/01/15 03/01/15 Unknown Previous Rx's Medication Instructions Recorded Last Taken Type Ferrous Sulfate [Feosol 325 MG tab] 325 mg PO BID #60 tablet 03/09/15 Unknown Rx Acyclovir [Acyclovir Ointment] 1 applicatio TP 5XD PRN #1 tube 06/07/16 Unknown Rx Acetaminophen/Codeine [Tylenol #3] 1 tab PO Q6H PRN #12 tab 03/07/17 Unknown Rx Clindamycin [Clindamycin CAP] 300 mg PO Q8HR 10 Days capsule 03/07/17 Unknown Rx Amoxicillin/K Clav Tab [Augmentin 1 tab PO Q12HR #20 tab 10/12/17 Unknown Rx 875 mg] Ibuprofen [Motrin] 600 mg PO Q8H PRN #30 tablet 10/12/17 Unknown Rx Naproxen [Naprosyn] 500 mg PO BID PRN #12 tablet 09/17/18 Unknown Rx cephALEXin [Keflex] 500 mg PO Q8HR 7 Days #14 cap 11/23/18 Unknown Rx Albuterol Mdi (or & Nicu Only) 2 puff IH QID PRN #1 inhalation 12/15/18 Unknown Rx [ProAir HFA Inhaler] Sucralfate [Carafate] 1 gm PO QID 15 Days oral.susp 12/15/18 Unknown Rx ALPRAZolam [Xanax TAB] 0.25 mg PO BID PRN #6 tab 01/14/19 Unknown Rx Butalb/Acetamin/Caff 50-325-40 1 tab PO Q6HR PRN #12 tab 01/14/19 Unknown Rx [Fioricet] Albuterol Mdi (or & Nicu Only) 2 puff IH QID PRN #1 inhalation 04/03/19 Unknown Rx [ProAir HFA Inhaler] Azithromycin [Zithromax Z-ALEJANDRO] 250 mg PO DAILY #6 tablet 04/03/19 Unknown Rx Butalb/Acetamin/Caff 50-325-40 1 tab PO Q6HR PRN #10 tab 02/17/20 Unknown Rx [Fioricet] diazePAM TAB [Valium] 5 mg PO BID PRN #10 tablet 02/17/20 Unknown Rx Meclizine [Antivert] 25 mg PO TID PRN #30 tab 03/14/22 Unknown Rx Allergies Allergy/AdvReac Type Severity Reaction Status Date / Time No Known Allergies Allergy Verified 03/14/22 12:53 ED Review of Systems Comment: All other systems reviewed and negative Constitutional: other. denies: chills, fever Eyes: vision change ENT: denies: congestion Respiratory: denies: cough, orthopnea, shortness of breath, SOB with exertion, SOB at rest, stridor, wheezing Cardiovascular: denies: chest pain, palpitations, dyspnea on exertion, orthopnea, edema, syncope, paroxysmal nocturnal dyspnea Gastrointestinal: nausea. denies: abdominal pain, vomiting, diarrhea, hematemesis, melena, hematochezia Genitourinary: denies: urgency, dysuria, frequency, discharge Musculoskeletal: denies: back pain Neurological: headache. denies: weakness, numbness, paresthesias, abnormal gait, vertigo ED Past Medical Hx - Past Medical History Hx Hypertension: Yes Hx Heart Attack/AMI: No Hx Congestive Heart Failure: No Hx Diabetes: No Hx Deep Vein Thrombosis: No Hx Pulmonary Embolism: No Hx GERD: Yes Hx Liver Disease: No Hx Renal Disease: No Hx Sickle Cell Disease: No Hx Arthritis: No Hx Headaches / Migraines: No Hx Seizures: No Hx Kidney Stones: No Hx Asthma: Yes Hx COPD: No Hx Tuberculosis: No Hx Dementia: No Hx HIV: No Additional medical history: anemia, herpes - Surgical History Hx Coronary Stent: No Hx Pacemaker: No Hx Internal Defibrillator: No Additional Surgical History: x 4. Hysterectomy 03/06/15 - Social History Smoking Status: Never Smoker Substance Use Type: None - Medications Home Medications: Home Medications Medication Instructions Recorded Confirmed Last Taken Type Ibuprofen [Motrin 800 MG tab] 800 mg PO Q8H PRN 03/01/15 03/01/15 Unknown History Ferrous Sulfate [Feosol 325 MG tab] 325 mg PO BID #60 tablet 03/09/15 Unknown Rx Acyclovir [Acyclovir Ointment] 1 applicatio TP 5XD PRN #1 tube 06/07/16 Unknown Rx Acetaminophen/Codeine [Tylenol #3] 1 tab PO Q6H PRN #12 tab 03/07/17 Unknown Rx Clindamycin [Clindamycin CAP] 300 mg PO Q8HR 10 Days capsule 03/07/17 Unknown Rx Amoxicillin/K Clav Tab [Augmentin 1 tab PO Q12HR #20 tab 10/12/17 Unknown Rx 875 mg] Ibuprofen [Motrin] 600 mg PO Q8H PRN #30 tablet 10/12/17 Unknown Rx Naproxen [Naprosyn] 500 mg PO BID PRN #12 tablet 09/17/18 Unknown Rx cephALEXin [Keflex] 500 mg PO Q8HR 7 Days #14 cap 09/17/18 Unknown Rx Albuterol Mdi (or & Nicu Only) 2 puff IH QID PRN #1 inhalation 12/15/18 Unknown Rx [ProAir HFA Inhaler] Sucralfate [Carafate] 1 gm PO QID 15 Days oral.susp 12/15/18 Unknown Rx ALPRAZolam [Xanax TAB] 0.25 mg PO BID PRN #6 tab 01/14/19 Unknown Rx Butalb/Acetamin/Caff 50-325-40 1 tab PO Q6HR PRN #12 tab 01/14/19 Unknown Rx [Fioricet] Albuterol Mdi (or & Nicu Only) 2 puff IH QID PRN #1 inhalation 04/03/19 Unknown Rx [ProAir HFA Inhaler] Azithromycin [Zithromax Z-ALEJANDRO] 250 mg PO DAILY #6 tablet 04/03/19 Unknown Rx Butalb/Acetamin/Caff 50-325-40 1 tab PO Q6HR PRN #10 tab 02/17/20 Unknown Rx [Fioricet] diazePAM TAB [Valium] 5 mg PO BID PRN #10 tablet 02/17/20 Unknown Rx Meclizine [Antivert] 25 mg PO TID PRN #30 tab 03/14/22 Unknown Rx ED Physical Exam - General Limitations: No Limitations General appearance: alert, in no apparent distress - Head Head exam: Present: atraumatic, normocephalic - Eye Eye exam: Present: normal appearance. Absent: conjunctival injection - ENT ENT exam: Absent: normal exam (bilateral nasal mucosal edema) - Neck Neck exam: Present: normal inspection, full ROM. Absent: tenderness, lymphadenopathy - Respiratory Respiratory exam: Present: normal lung sounds bilaterally. Absent: respiratory distress, wheezes, rales, rhonchi, stridor, chest wall tenderness - Cardiovascular Cardiovascular Exam: Present: regular rate, normal rhythm, normal heart sounds - GI/Abdominal GI/Abdominal exam: Present: soft, normal bowel sounds. Absent: distended, tenderness, guarding, rebound, rigid - Extremities Exam Extremities exam: Present: normal inspection, full ROM, normal capillary refill. Absent: tenderness, pedal edema, joint swelling, calf tenderness - Back Exam Back exam: Present: normal inspection. Absent: tenderness, CVA tenderness (R), CVA tenderness (L), muscle spasm - Neurological Exam Neurological exam: Present: alert, oriented X3, normal gait - Psychiatric Psychiatric exam: Present: normal affect, normal mood - Skin Skin exam: Present: warm, dry, intact, normal color ED Course - Reevaluation(s) Reevaluation #1: 03/14/22 19:46 Dizziness improved with medication. Patient denies chest pain at this time. ED Medical Decision Making - Lab Data Result diagrams: 03/14/22 16:29 03/14/22 16:29 - EKG Data EKG shows normal: sinus rhythm Rate: normal - EKG Data Interpretation: no acute changes - Radiology Data Radiology results: report reviewed, image reviewed CXR: FINDINGS: SUPPORT DEVICES: None. HEART / MEDIASTINUM: The heart size and pulmonary vasculature are normal. LUNGS / PLEURA: No significant pulmonary or pleural abnormality. No pneumothorax. ADDITIONAL FINDINGS: No significant additional findings. IMPRESSION: No acute abnormality. CT head without contrast: FINDINGS: BRAIN/INTRACRANIAL STRUCTURES: Unenhanced CT images of the brain demonstrate no evidence of acute intracranial abnormality. Ventricles and sulci are normal in size and shape. There is no evidence of hemorrhage or mass. There are no abnormal extra-axial fluid collections. EXTRACRANIAL STRUCTURES: Unremarkable. IMPRESSION: No acute abnormality. - Medical Decision Making 41 yo female with no pmh presents to the ed for evaluation of 5 day history of d izziness and light headedness that was worse this am. She states that she wakes up every morning with dizziness and the past few days she has had increasing fatigue with nausea. She denies chest pain, sob, vomiting, diaphoresis, and fever. She states that she has had some blurred vision. Ekg with acute ischemic changes noted, CT head wnl, labs wnl, troponin wnl, and urine negative for UTI and patient not orthostatic. Dizziness minimally improved with meclizine. Patient advised to use meclizine as needed for dizziness, try dialy sinus medication, and follow up with primary care provder for further evaluation and management. She was advised to monitor and record blood, and follow up with pcp if bp remains elevated. She is advised to follow up in ED as needed. She verbalized understanding of and agreement with plan of care. ED Disposition Clinical Impression: Dizziness, Thrombocytopenia Disposition: HOME / SELF CARE / HOMELESS Is pt being admited?: No Does the pt Need Aspirin: No Condition: Stable Instructions: Dizziness, [id number] Additional Instructions: Take medications as prescribed. Follow-up primary care provider for further evaluation and management. Return to the emergency department as needed. Prescriptions: Meclizine [Antivert] 25 mg PO TID PRN #30 tab PRN Reason: Vertigo Referrals: DOROTA EASLEY MD [Staff Physician] - 3-5 Days Forms: Work/School Release Form(ED) Time of Disposition: 19:48 <JOHN VINES - Last Filed: 03/15/22 19:39> ED Review of Systems ROS: Stated complaint: FATIGUE/CP Other details as noted in HPI ED Course Vital Signs 03/14/22 03/14/22 03/14/22 12:46 17:05 18:22 Temperature 97.5 F L 98.1 F Pulse Rate 71 76 Pulse Rate [ 81 Lying] Pulse Rate [ 88 Sitting] Pulse Rate [ 90 Standing] Respiratory 18 20 Rate Blood Pressure 157/99 126/78 [Left] Blood Pressure 144/81 [Lying] Blood Pressure 159/89 [Sitting] Blood Pressure 156/98 [Standing] O2 Sat by Pulse 100 100 Oximetry 03/14/22 20:03 Temperature 98.6 F Pulse Rate 67 Pulse Rate [ Lying] Pulse Rate [ Sitting] Pulse Rate [ Standing] Respiratory 20 Rate Blood Pressure 145/87 [Left] Blood Pressure [Lying] Blood Pressure [Sitting] Blood Pressure [Standing] O2 Sat by Pulse 100 Oximetry ED Medical Decision Making - Lab Data Result diagrams: 03/14/22 16:29 03/14/22 16:29 - Medical Decision Making Review chart at this time. Patient has a platelet count of 40 which is low compared to previous values. As per this chart review patient was not informed or thrombocytopenia. I called patient and informed her that her platelet count was 40 and inquired about any spontaneous bleeding. Patient states she always has bleeding gums when brushing her teeth secondary to periodontal disease. During ED visit patient did not have any anemia or hypotension to suggest acute blood loss. Patient does not complain of any other abnormal bleeding at this time. I stressed the importance for follow-up with her primary care doctor to obtain repeat CBC to verify platelet count. Differential include thrombocytope ravi versus lab error. I also informed patient not to take aspirin, Goody powders, or other aspirin products until her platelet count can be confirmed and to return to ER if she has increased or excessive bleeding. Patient voices understanding. She was provided f/w [facility] or her initial discharge papers and I think this is acceptable to repeat her CBC. 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
[2022-03-14 20:04] VITALS: BP 145/87
--- NOTE | 2022-03-16 18:09 | Electrocardiograph Report ---
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
== END 2022-03-14 20:04 | disposition home or self-care (01) ==
LOC: ED 12:18
DX: R42 Dizziness and giddiness (principal); D69.6 Thrombocytopenia, unspecified; I10 Essential (primary) hypertension; J45.909 Unspecified asthma, uncomplicated
CPT/HCPCS: 36415; 70450; 71046; 80053; 81001; 84484; 84703; 85027; 93005; 99284